=== PATIENT | female | born 2000 | race Caucasian/White ===

== ENCOUNTER 2021-07-03 16:53 | Emergency (ER) | payer MEDICAID, SELFPAY ==
[2021-07-03 17:24] VITALS: PULSE 83; RESP 16; TEMP 37; O2SAT 97; BMI 29.7
[2021-07-03 20:32] LABS: Basophils # 0.1 10^3/uL (0.0-0.1); Basophils % 0.5 %; Eosinophils # 0.1 10^3/uL (0.0-0.8); Hematocrit 45.5 % (37.0-47.0); Hemoglobin 14.2 g/dL (11.5-15.3); Lymphocytes # 2.4 10^3/uL (1.5-6.5); Mean Corpuscular HGB Conc 31.2 g/dL (30.0-36.0); Mean Corpuscular Hemoglobin 25.8 pg (28.0-34.0); Mean Corpuscular Volume 82.6 fl (81-99); Mean Platelet Volume 9.9 fL (7.4-10.4); Monocytes # 0.7 10^3/uL (0.2-0.9); Monocytes % 5.6 %; Neutrophils # 8.76 10^3/uL (1.8-8.0); Neutrophils % 72.7 %; Nucleated Red Blood Cells % 0 %; Platelet Count 395 10^3/cmm (130-400); Red Blood Count 5.51 10^6/uL (4.1-5.3); Red Cell Distribution Width 12.5 % (12.1-15.1); White Blood Count 12.1 10^3/uL (4.5-13.0)
[2021-07-03 20:59] LABS: HCG Quantitative 61.56 mIU/mL
--- NOTE | 2021-07-03 21:18 | USR_ITS ---
PROCEDURE INFORMATION: Exam: US First Trimester, Transabdominal and US , Transvaginal Exam date and time: 07/03/2021 9:18 PM Age: 20 years old Clinical indication: complicated by abdominal or pelvic pain; Right lower quadrant; First trimester; Gestational age or lmp: 2 weeks; ; Additional info: Abd pain TECHNIQUE: Imaging protocol: Real-time transabdominal obstetrical ultrasound of the maternal pelvis and a first trimester , less than 14 weeks 0 days, with image documentation. Transvaginal imaging was used for better evaluation of the fetus, adnexa, and/or cervix. Total images: 65 COMPARISON: No relevant prior studies available. FINDINGS: Gestation: No visible intrauterine gestational sac, pole, or yolk sac. MATERNAL: Uterus: Neutral position nongravid appearing uterus dimensions 4.8 cm x 3.4 cm x 3.9 cm. Endometrial stripe appears normal measuring 3 mm. Normal transition zone. No visible endometrial fluid. Cervix: Unremarkable. Right adnexa: Right ovary appears sonographically normal. Right ovary contains numerous simple appearing follicle cysts. Dominant follicle measures 12 mm. Dimensions of the right ovary 3.0 cm x 2.5 cm x 2.7 cm. Positive arterial flow to color and Doppler assessment. No visible right adnexal mass or cystic lesion. Left adnexa: Left ovary appears sonographically normal. Numerous simple appearing follicle cysts. Dimensions of the left ovary 3.1 cm x 2.5 cm x 2.7 cm. Positive arterial flow to color Doppler assessment. No visible left adnexal mass or cystic lesion. Intraperitoneal space: Tiny amount of free fluid the cul-de-sac. US/US OB <=14 wk fetus w transvag IMPRESSION: No visible intrauterine gestation.
--- NOTE | 2021-07-03 21:21 | ED_ITS ---
HPI - Female Genitourinary General: Chief complaint: Vaginal Bleeding Stated complaint: Vaginal bleeding, Cramping on L side Time Seen by Provider: 07/03/21 21:04 Source: patient Mode of arrival: ambulatory Limitations: no limitations History of Present Illness: HPI Narrative: 20-year-old female states she been having left lower quadrant pain and cramping and vaginal bleeding. Patient is seen at urgent care and sent here to rule out ectopic . States pain is sharp in nature and rates it a 2 out of 10. States her bleeding is not very heavy but a little heavier than a period. She denies passing any blood clots. She denies any worsening improving factors. Associated symptoms: Reports abdominal pain; Deny headache(s) or nausea Date of Last Menstrual Period: 06/26/21 Review of Systems Const: Denies: fever(s), chills, body aches or change in appetite Eyes: Denies: blurry vision or eye discomfort ENMT: Denies: throat pain or dental pain Card: Denies: chest pain Resp: Denies: dyspnea GI: Reports: abdominal pain; Denies: nausea, vomiting or diarrhea : Reports: vaginal bleeding; Denies: dysuria Musc: Denies: neck pain or back pain Skin/Breast: Denies: rash Neuro: Denies: headache(s) Psych: Denies: depression [place]/Lymph: Denies: easy bruising All/Imm: Denies: urticaria PFSH ED PFSH: Social History (Updated 07/04/20 @ 10:13 by Mary Corado LPN) Smoking and tobacco status: never smoked Alcohol intake: never Female Reproductive History: Date of last menstrual period: 06/26/21 Physical Exam Const: COMMON NORMALS: no acute distress, patient oriented x3 and healthy appearing HENMT: COMMON NORMALS: normocephalic and atraumatic HEAD & SCALP: normocephalic and atraumatic Eye: COMMON NORMALS: Equal, round and reactive pupils present and EOMs intact bilaterally PUPIL: Yes Equal, round and reactive pupils present Neck/C-Spine: COMMON NORMALS: full ROM and supple Chest: COMMONS NORMALS: normal inspection of the chest and normal palpation of entire chest wall Resp: COMMON NORMALS: normal respiratory effort, No retractions, No use of accessory muscles and clear to auscultation bilaterally AUSCULTATION: clear to auscultation bilaterally Cardio: COMMON NORMALS: regular rate, regular rhythm and No murmurs present (Cardio) RATE: regular rate RHYTHM: regular rhythm GI: COMMON NORMALS: Normal to inspection, nondistended, normoactive bowel sounds present, Soft to palpation, non-tender and no masses PALPATION: Yes Soft to palpation Extremity: COMMON NORMALS: normal to inspection and full ROM Neuro: COMMON NORMALS: patient oriented x3, moves all extremities and no focal motor deficits Psych: COMMON NORMALS: mental status grossly normal, Normal thought process present and cooperative THOUGHT PROCESS: Normal thought process present Skin: COMMON NORMALS: no rashes or lesions noted and no wounds GENERAL SKIN EXAM: no rashes or lesions noted Course Vital Signs: Vital signs: Vital Signs Temperature 98.6 F 07/03/21 17:24 Pulse Rate 83 07/03/21 17:24 Respiratory Rate 16 07/03/21 17:24 Pulse Oximetry 97 07/03/21 17:24 MDM - Female MDM Narrative: Medical decision making narrative: Patient presents here with vaginal bleeding with likely miscarriage that was missed. Her quantitative here is only 68 ultrasound showed no signs of ectopic. She is well-appearing here and stable for discharge. She has no heavy bleeding. She is to follow-up and I informed her she needs to have a repeat quantitative in 2 days to make sure that it is trending down. She understands and agrees the plan. Lab Data: Labs: Lab Results 07/03/21 07/03/21 07/03/21 Range/Units 20:23 20:23 20:23 WBC 12.1 (4.5-13.0) 10^3/ uL RBC 5.51 H (4.1-5.3) 10^6/u L Hgb 14.2 (11.5-15.3) g/dL Hct 45.5 (37.0-47.0) % MCV 82.6 (81-99) fl MCH 25.8 L (28.0-34.0) pg MCHC 31.2 (30.0-36.0) g/dL RDW 12.5 (12.1-15.1) % Plt Count 395 (130-400) 10^3/c mm MPV 9.9 (7.4-10.4) fL Neut % (Auto) 72.7 % Lymph % (Auto) 20.0 % Wallace % (Auto) 5.6 % Eos % (Auto) 1.0 % Baso % (Auto) 0.5 % Neut # (Auto) 8.76 H (1.8-8.0) 10^3/u L Lymph # (Auto) 2.4 (1.5-6.5) 10^3/u L Wallace # (Auto) 0.7 (0.2-0.9) 10^3/u L Eos # (Auto) 0.1 (0.0-0.8) 10^3/u L Baso # (Auto) 0.1 (0.0-0.1) 10^3/u L Nucleated RBC % (a uto) 0 % Nucleated RBCs # 0.0 /100WBC Ser , Micha i-Qnt 61.56 mIU/mL Blood Type O Positive Rho(D) Type Positive Discharge Plan Discharge Patient Disposition: Home Clinical Impression: Missed Condition: Stable Discharge Orders: Discharge ED (Routine); Ordered 07/03/21 Ordered By: Yessi Borja Referrals: Trinh Vargas FNP [Primary Care Provider] - 1-3 days Discharge Diet: Advance as tolerated Discharge Activity: Resume usual activity Patient Instructions: Spontaneous Miscarriage (ED) Coding Level of Care Code ED Construction Manager for Bertha Fwd Exam Comprehensive
[2021-07-03] MEDS: HYDROcodone-acetaminophen 7.5-325 mg Tablet 1 TAB PO (21:39)
[2021-07-03 22:37] VITALS: BP 156/68; PULSE 89; RESP 18; O2SAT 96
== END 2021-07-03 22:38 | disposition home or self-care (01) ==
PROVIDERS: Nurse Practitioner Family; Emergency Provider Emergency Medicine; PCP Registered Nurse
DX: O02.1 Missed abortion (principal)
CPT/HCPCS: 76801; 76817; 81025; 84702; 85025; 86900; 99283

== ENCOUNTER → 2021-07-06 12:09 | Outpatient (BNVA) | payer MEDICAID, SELFPAY | PROVIDERS: PCP Registered Nurse; Visit Provider Registered Nurse Neonatal Intensive Care | DX: O02.1 Missed abortion (principal) | CPT/HCPCS: 84702 ==

== ENCOUNTER → 2021-10-15 13:31 | Outpatient (BNVA) | payer MEDICAID, SELFPAY | PROVIDERS: PCP Registered Nurse; Referring Provider Registered Nurse; Visit Provider Nurse Practitioner Women's Health | DX: N92.6 Irregular menstruation, unspecified (principal) | CPT/HCPCS: 81025; 84702 ==

== ENCOUNTER 2021-10-21 20:28 | Emergency (ER) | payer MEDICAID, SELFPAY ==
[2021-10-21 20:39] VITALS: BP 139/88; PULSE 86; RESP 18; TEMP 36.7; O2SAT 100; BMI 42.3
--- NOTE | 2021-10-21 21:13 | W.ED.FEVER ---
HPI - Fever General: Chief Complaint: Fever Stated Complaint: Fever and 9 wks Time Seen by Provider: 10/21/21 21:13 History of Present Illness: HPI Narrative: 21-year-old female comes in today for complaints of an elevated temperature at home of 104 that was read by infrared screening tool. Patient also been having some left flank and inguinal discomfort. Patient was worried she may have an infection or a ectopic . Patient is about 9 weeks . Patient has some significant eczema which makes her face feel red and suspect that it might have offset her thermometer at home. Review of Systems General: Reports: 10 or more systems reviewed and unremarkable except in HPI and below : Reports: other (Left inguinal pelvic pain) PFS ED PFSH: Medical History (Updated 10/22/21 @ 01:39 by TIANNA Amanda) Eczema (~04/2021) managed by syed; Dr. Hauser at [facility] [place]. No pertinent past medical history neghx: htn,dm,thyroid,dvt/pe PCP: Trinh Vargas Surgical History (Updated 10/15/21 @ 14:00 by Fariba Sapp APN, YOGI) History of hernia surgery Umbilical --- at 6 months old History of surgery on arm (~2016) L arm- cubital tunnel repair due to cheer leading incident History of tonsillectomy and adenoidectomy as a child Family History Father Heart disease Hypertension Thyroid disease Mother Hypertension Cervical cancer dx age 40's Thyroid disease thyroid cancer Denies family history of Colon cancer Ovarian cancer Diabetes Hypercholesteremia Breast cancer Uterine cancer Stroke Social History Smoking and tobacco status: never smoked Alcohol intake: never Female Reproductive History: Date of last menstrual period: 08/21/21 Physical Exam Const: COMMON NORMALS: no acute distress and patient oriented x3 GENERAL APPEARANCE: cooperative HENMT: COMMON NORMALS: normocephalic, TM's normal bilaterally and Normal external nose present HEAD & SCALP: normal to inspection and normocephalic NOSE: Normal external nose present TYMPANIC MEMBRANE: TM's normal bilaterally MOUTH: Normal oral and palatal mucosa present THROAT: posterior oropharynx normal Eye: GENERAL EYE: appearance normal, both eyes and all related structures Neck/C-Spine: COMMON NORMALS: full ROM Lymph: LYMPHATIC: no lymphadenopathy noted Chest: COMMONS NORMALS: normal inspection of the chest Resp: COMMON NORMALS: normal respiratory effort EFFORT & INSPECTION: Yes able to speak in complete sentences Cardio: COMMON NORMALS: regular rate and regular rhythm RATE: regular rate RHYTHM: regular rhythm GI: COMMON NORMALS: non-tender : COMMON NORMALS: Yes no CVA tenderness BLADDER/KIDNEY EXAM: Yes no CVA tenderness Back/Pelvis: COMMON NORMALS: no CVA tenderness and thoracic and lumbar spine normal to inspection Extremity: COMMON NORMALS: normal to inspection Neuro: COMMON NORMALS: patient oriented x3 and moves all extremities Psych: COMMON NORMALS: mental status grossly normal and cooperative Skin: COMMON NORMALS: no rashes or lesions noted GENERAL SKIN EXAM: no rashes or lesions noted Course Vital Signs: Vital signs: Vital Signs Temperature 98.1 F 10/21/21 20:39 Pulse Rate 88 10/22/21 00:28 Respiratory Rate 19 H 10/22/21 00:28 Blood Pressure 141/89 10/22/21 00:28 Pulse Oximetry 98 10/22/21 00:28 MDM - Fever MDM Narrative: Medical decision making narrative: 21-year-old female comes in today with concerns of fever and left inguinal pain. On exam abdomen was soft and nontender. No CVA tenderness. Vital signs were normal. Skin was warm and dry. Respirations were even. Differential diagnosis includes but not limited to ectopic , urinary tract infection, viral syndrome, fever of unknown origin. Laboratory values were normal. Urinalysis was normal. hCG was 75,000. Ultrasound of the pelvis noted a viable fetus with 153 heart rate in the uterus. No signs of ectopic was noted. Patient ran no fever in the emergency room. Suspect may be a malfunction with patient's home thermometer recommend recheck with a noninfrared thermometer. Encourage fluids and rest. Use acetaminophen as needed for fever. Follow-up with primary care for further instruction. Return to the ER for worsening symptoms or new concerns. Lab Data: Labs: Lab Results 10/21/21 10/21/21 10/21/21 20:53 21:33 21:33 WBC 11.9 10^3/uL 10^3 /uL (4.5-13.0) RBC 5.20 10^6/uL 10^6 /uL (4.1-5.3) Hgb 13.4 g/dL g/dL (11.5-15.3) Hct 41.5 % % (37.0-47.0) MCV 79.8 fl L fl (81-99) MCH 25.8 pg L pg (28.0-34.0) MCHC 32.3 g/dL g/dL (30.0-36.0) RDW 14.0 % % (12.1-15.1) Plt Count 354 10^3/cmm 10^3 /cmm (130-400) MPV 10.3 fL fL (7.4-10.4) Neut % (Auto) 62.9 % % Lymph % (Auto) 23.5 % % [place] % (Auto) 7.2 % % Eos % (Auto) 5.8 % % Baso % (Auto) 0.3 % % Neut # (Auto) 7.46 10^3/uL 10^3 /uL (1.8-8.0) Lymph # (Auto) 2.8 10^3/uL 10^3/ uL (1.5-6.5) [place] # (Auto) 0.9 10^3/uL 10^3/ uL (0.2-0.9) Eos # (Auto) 0.7 10^3/uL 10^3/ uL (0.0-0.8) Baso # (Auto) 0.0 10^3/uL 10^3/ uL (0.0-0.1) Nucleated RBC % (a uto) 0 % % Nucleated RBCs # 0.0 /100WBC /100W BC Sodium 136 mmol/L mmol/L (136-145) Potassium 3.7 mmol/L mmol/L (3.5-5.1) Chloride 100 mmol/L mmol/L (98-107) Carbon Dioxide 22 mmol/L mmol/L (22-29) Anion Gap 17.7 (5-19) BUN 5 mg/dL L mg/dL (6-20) Creatinine 0.6 mg/dL mg/dL (0.5-0.9) GFR Calculation 127.5 mL/min mL/m in (90-130) Glucose 92 mg/dL mg/dL (65-115) Calculated Osmolal ity 279 mOsm/kg L mOs m/kg (285-295) Calcium 9.1 mg/dL mg/dL (8.5-10.5) Total Bilirubin 0.2 mg/dL mg/dL (0.15-1.2) AST 22 U/L U/L (0-32) ALT 17 U/L U/L (0-33) Alkaline Phosphata se 110 IU/L H IU/L (35-105) Total Protein 7.2 g/dL g/dL (6.6-8.7) Albumin 4.4 g/dL g/dL (3.5-5.2) Globulin 2.8 g/dL g/dL (1.3-4.6) Ser , Micha i-Qnt 84466.00 mIU/mL m IU/mL Urine Color Yellow (Yellow) Urine Appearance Clear (CLEAR) Urine pH 5 (5-7) Ur Specific Gravit y 1.030 (1.005-1.030) Urine Protein Neg (Negative) Urine Glucose (UA) Norm (Normal) Urine Ketones Negative (Negative) Urine Blood Neg (Negative) Urine Nitrate Negative (Negative) Urine Bilirubin Neg (Negative) Urine Urobilinogen Neg mg/dL mg/dL (Negative) Ur Leukocyte Aide ase Negative (Negative) Discharge Plan Discharge Patient Disposition: Home Clinical Impression: Pain of round ligament during , Viral syndrome Condition: Stable Prescriptions: No Action Gummies 400 mcg-35 mg- 25 mg-5 mg tablet,chewable PO RF: 0 Dupixent Syringe 200 mg/1.14 mL syringe SUBCUT RF: 0 Discharge Orders: Discharge ED (Routine); Ordered 10/22/21 Ordered By: Dayton Sepulveda Referrals: Trinh Vargas FNP [Primary Care Provider] - Discharge Diet: Usual diet Discharge Activity: Increase activity as tolerated Patient Instructions: Abdominal Pain (ED) Activity Restrictions/Additional Instructions: Drink plenty of fluids. Activity as tolerated. Follow-up with primary care for further instruction. Return to the ER for new concerns or worsening symptoms such as high fever, vaginal bleeding, or inability to control fever or hold down fluids. Coding Level of Care Code ED Technician [employer] for Bertha Sena
--- NOTE | 2021-10-21 21:20 | USR_ITS ---
PROCEDURE INFORMATION: Exam: US First Trimester, Transabdominal and US , Transvaginal Exam date and time: 10/21/2021 9:20 PM Age: 21 years old Clinical indication: complicated by abdominal or pelvic pain; Left lower quadrant; First trimester (<14 weeks 0 days); Gestational age or lmp: 8w5d; ; Patient HX: G2- p0; Additional info: Left flank radiating pain, 9weeks TECHNIQUE: Imaging protocol: Real-time transabdominal obstetrical ultrasound of the maternal pelvis and a first trimester , less than 14 weeks 0 days, with image documentation. Transvaginal imaging was used for better evaluation of the fetus, adnexa, and/or cervix. COMPARISON: US OB <=14 wk fetus w transvag 07/03/2021 9:57 PM FINDINGS: Gestation: Intrauterine yolk sac. presentation: Variable presentation. Embryonic/ heart rate: heart beat 153 bpm but no images were sent to document this. BIOMETRY: [place]-Rump length: No images measuring the crown-rump length were sent for interpretation. MATERNAL: Uterus: 11.1 x 5.7 x 7.8 cm uterus with estimated volume 257 cc. Cervix: Unremarkable. Right ovary/adnexa: 1.6 x 2.6 x 3.8 cm right ovary with estimated volume 8.5 cc. No Doppler images of the right ovary. Left ovary/adnexa: 1.7 x 2.0 x 2.5 cm left ovary with estimated volume 4.3 cc. Normal left ovarian perfusion. Intraperitoneal space: No intraperitoneal free fluid. US/US OB <=14 wk fetus w transvag IMPRESSION: 1. heart beat 153 bpm but no images were sent to document this. 2. No images measuring the crown-rump length were sent for interpretation. 3. Variable presentation. 4. Intrauterine yolk sac. 5. Normal left ovarian perfusion. 6. No Doppler images of the right ovary.
[2021-10-21 21:31] LABS: Add Urine Microscopic? NO; Charge for UA Resulting for Rev
[2021-10-21 21:36] LABS: Bilirubin Urine Neg (Negative); Blood Urine Neg (Negative); Glucose Urine UA Norm (Normal); Ketones Urine Negative (Negative); Leukocyte Esterase Urine Negative (Negative); Nitrate Urine Negative (Negative); Protein Urine Neg (Negative); Urine Appearance Clear (CLEAR); Urine Color Yellow (Yellow); Urobilinogen Urine Neg (Negative); pH Urine 5 (5-7)
[2021-10-21 21:40] LABS: Basophils % 0.3 %; Eosinophils # 0.7 10^3/uL (0.0-0.8); Eosinophils % 5.8 %; Hematocrit 41.5 % (37.0-47.0); Hemoglobin 13.4 g/dL (11.5-15.3); Lymphocytes # 2.8 10^3/uL (1.5-6.5); Lymphocytes % 23.5 %; Mean Corpuscular HGB Conc 32.3 g/dL (30.0-36.0); Mean Corpuscular Hemoglobin 25.8 pg (28.0-34.0); Mean Corpuscular Volume 79.8 fl (81-99); Mean Platelet Volume 10.3 fL (7.4-10.4); Monocytes # 0.9 10^3/uL (0.2-0.9); Monocytes % 7.2 %; Neutrophils # 7.46 10^3/uL (1.8-8.0); Neutrophils % 62.9 %; Nucleated Red Blood Cells % 0 %; Platelet Count 354 10^3/cmm (130-400); White Blood Count 11.9 10^3/uL (4.5-13.0)
[2021-10-21 22:11] LABS: Alanine Aminotransferase 17 U/L (0-33); Albumin Level 4.4 g/dL (3.5-5.2); Alkaline Phosphatase 110 IU/L (35-105); Anion Gap 17.7 (5-19); Aspartate Amino Transferase 22 U/L (0-32); Blood Urea Nitrogen 5 mg/dL (6-20); Calcium 9.1 mg/dL (8.5-10.5); Carbon Dioxide 22 mmol/L (22-29); Chloride 100 mmol/L (98-107); Globulin 2.8 g/dL (1.3-4.6); Glomerular Filtration Rate 127.5 mL/min (90-130); Glucose 92 mg/dL (65-115); Osmolality Calculated 279 mOsm/kg (285-295); Potassium 3.7 mmol/L (3.5-5.1); Sodium 136 mmol/L (136-145); Total Bilirubin 0.2 mg/dL (0.15-1.2); Total Protein 7.2 g/dL (6.6-8.7)
[2021-10-21 22:44] VITALS: BP 137/68; PULSE 83; RESP 18; O2SAT 99
[2021-10-22 00:28] VITALS: BP 141/89; PULSE 88; RESP 19; O2SAT 98
[2021-10-22 01:46] VITALS: BP 134/66; PULSE 90; RESP 16; O2SAT 97
== END 2021-10-22 01:47 | disposition home or self-care (01) ==
PROVIDERS: Emergency Provider Nurse Practitioner Family; PCP Registered Nurse
DX: O98.511 Other viral diseases complicating pregnancy, first trimester (principal); B34.9 Viral infection, unspecified; O26.891 Other specified pregnancy related conditions, first trimester; R10.2 Pelvic and perineal pain; Z3A.09 9 weeks gestation of pregnancy
CPT/HCPCS: 76801; 76817; 80053; 81003; 84702; 85025; 99283

== ENCOUNTER → 2021-11-06 09:25 | Outpatient (BNVA) | payer MEDICAID, SELFPAY | PROVIDERS: PCP Registered Nurse; Visit Provider Obstetrics & Gynecology | DX: Z34.90 Encounter for supervision of normal pregnancy, unspecified, unspecified trimester (principal); L30.9 Dermatitis, unspecified | CPT/HCPCS: 80307; 81000; 87086 ==

== ENCOUNTER → 2021-11-18 13:16 | Outpatient (BNVA) | payer MEDICAID, SELFPAY | PROVIDERS: PCP Registered Nurse; Visit Provider Nurse Practitioner Family | DX: Z20.822 Contact with and (suspected) exposure to COVID-19 (principal) | CPT/HCPCS: 87635 ==

== ENCOUNTER → 2021-11-20 13:48 | Outpatient (BNVA) | payer MEDICAID, SELFPAY | PROVIDERS: PCP Registered Nurse; Visit Provider Obstetrics & Gynecology | DX: Z34.80 Encounter for supervision of other normal pregnancy, unspecified trimester | CPT/HCPCS: 80053; 81000; 82950; 84443; 85027; 86592; 86762; 86803; 86850; 86900; 87340; 87491; 87591; 87806 ==

== ENCOUNTER 2021-12-16 04:44 | Emergency (ER) | payer MEDICAID, SELFPAY ==
[2021-12-16 04:51] VITALS: BP 168/66; PULSE 107; RESP 16; TEMP 36.2; O2SAT 97; BMI 40.7
[2021-12-16 05:09] VITALS: BP 159/55; PULSE 104; RESP 18; O2SAT 98
--- NOTE | 2021-12-16 05:14 | W.ED.ALLEREA ---
HPI - Allergic Reaction General: Chief complaint: Allergic Reaction Stated complaint: 17 weeks Preg\Allergic Reaction Time Seen by Provider: 12/16/21 04:59 Source: patient History of Present Illness: HPI narrative: 21-year-old female who is 17 weeks . She has been dealing with contact dermatitis/eczema for the last couple of months. She has seen her OB, dermatology, and allergy. She has been taking Dupixent as well as 3 Zyrtec a day. She awoke this morning with worsening symptoms including itching to the face and arms. She denies trouble breathing or wheezing. She states she has only been sleeping a couple hours at a time at night. She was on steroids quite a bit beginning of her for this, and notes that she actually worsened at one point with steroids. She was told by her basket machine operator if at all possible not to use any more steroid. Associated symptoms: Deny abdominal pain, difficulty breathing, dysphagia, facial swelling, lip swelling, nausea, tongue swelling or vomiting Severity: moderate Treatment prior to arrival: other Previous Allergic Reaction History: eczema Review of Systems Const: Denies: fever(s) or chills Eyes: Denies: change in vision ENMT: Denies: throat pain or uvular edema Card: Denies: chest pain or palpitations Resp: Denies: dyspnea, productive cough or non-productive cough GI: Denies: abdominal pain, nausea, vomiting or dysphagia Skin/Breast: Reports: rash All/Imm: Denies: tongue swelling or facial swelling [facility] ED PFSH: Medical History Eczema (~04/2021) Diagnosed in 2019 but has really gotten worse in 2020 managed by rahat; Dr. Hauser at [facility] [place]. She also takes tapered doses of steroids when she has flares up. No pertinent past medical history Denies diabetes, asthma, hypertension, seizures, DVT/PE PCP: TIANNA Lim Surgical History History of hernia surgery Umbilical --- at 6 months old---does not know if mesh was used History of surgery on arm (~2016) Left arm-fracture after trauma History of tonsillectomy and adenoidectomy as a child---at the age of 7 Family History Father Heart disease Hypertension Thyroid disease Mother Hypertension Cervical cancer dx age 40's Thyroid disease thyroid cancer Denies family history of Colon cancer Ovarian cancer Diabetes Hypercholesteremia Breast cancer Uterine cancer Stroke Female Reproductive History: Date of last menstrual period: 08/21/21 Physical Exam Const: COMMON NORMALS: no acute distress and alert GENERAL APPEARANCE: cooperative; not ill appearing NUTRITIONAL APPEARANCE: obese ORIENTATION/CONSCIOUSNESS: Yes awake, Yes oriented to person, Yes oriented to place and Yes oriented to time HENMT: COMMON NORMALS: normocephalic, atraumatic and Normal external nose present HEAD & SCALP: normocephalic and atraumatic NOSE: Normal external nose present and Normal nares present MOUTH: Normal oral and palatal mucosa present THROAT: no uvular edema Eye: COMMON NORMALS: Equal, round and reactive pupils present and EOMs intact bilaterally PUPIL: Yes Equal, round and reactive pupils present Resp: COMMON NORMALS: normal respiratory effort, No use of accessory muscles and clear to auscultation bilaterally AUSCULTATION: clear to auscultation bilaterally Cardio: COMMON NORMALS: regular rate and regular rhythm RATE: regular rate RHYTHM: regular rhythm GI: COMMON NORMALS: Normal to inspection, nondistended, normoactive bowel sounds present Neuro: SENSORIUM/ORIENTATION: Yes alert, Yes oriented to person, Yes oriented to place and Yes oriented to time Psych: COMMON NORMALS: mental status grossly normal Skin: NARRATIVE SKIN EXAM: Examination reveals widespread erythematous rolled bordered rash on extremities trunk and face. Rash is convalesced in the face Course Vital Signs: Vital signs: Vital Signs Temperature 97.2 F L 12/16/21 04:51 Pulse Rate 81 12/16/21 06:33 Respiratory Rate 16 12/16/21 06:33 Blood Pressure 139/83 12/16/21 06:33 Pulse Oximetry 96 12/16/21 06:33 MDM - Allergic Reaction Medical Decision Making Improvement in redness, and itching after Benadryl and Pepcid here. Patient again declined steroid. Will allow her home. She may take her Zyrtec as she normally would. No evidence of airway compromise or angioedema. Discharge Plan Discharge Patient Disposition: Home Clinical Impression: Allergic reaction Condition: Stable Prescriptions: No Action Gummies 400 mcg-35 mg- 25 mg-5 mg tablet,chewable PO 0RF Dupixent Syringe 200 mg/1.14 mL syringe SUBCUT .every other week 0RF Zyrtec 10 mg capsule 30 mg PO DAILY [id number] metoclopramide HCl [Reglan] 5 mg tablet 5 mg PO Q6H 14 Days Qty: 56 0RF Discharge Orders: Discharge ED (Routine); Ordered 12/16/21 Ordered By: Vamshi Perez Referrals: Trinh Vargas FNP [Primary Care Provider] - Patient Instructions: Allergic Reaction Activity Restrictions/Additional Instructions: Return for worsening redness, itching, trouble breathing, wheezing, and any other concerning symptoms. Coding Level of Care Code ED Rn Surgery Icu for Bertha Fwd Exam Detailed
[2021-12-16] MEDS: diphenhydrAMINE 50 mg/mL SDV 1mL IVP (05:25)
[2021-12-16] MEDS: LORazepam 2 mg/mL INJ 1 mL 1 MG IVP (05:28)
[2021-12-16] MEDS: famotidine 20 mg/2 mL INJ 40 MG IVP (05:28)
[2021-12-16] MEDS: diphenhydrAMINE 50 mg/mL SDV 1mL 25 MG IVP (06:32)
[2021-12-16 06:33] VITALS: BP 139/83; PULSE 81; RESP 16; O2SAT 96
[2021-12-16 06:57] VITALS: BP 135/77; PULSE 90; RESP 18; O2SAT 99
== END 2021-12-16 06:59 | disposition home or self-care (01) ==
PROVIDERS: Emergency Provider Emergency Medicine; PCP Registered Nurse
DX: O26.892 Other specified pregnancy related conditions, second trimester (principal); T78.40XA Allergy, unspecified, initial encounter; Z3A.17 17 weeks gestation of pregnancy
CPT/HCPCS: 96374; 96375; 99284; J1200; J2060; J3490

== ENCOUNTER → 2021-12-20 11:47 | Outpatient (BNVA) | payer MEDICAID, SELFPAY | PROVIDERS: PCP Registered Nurse; Visit Provider Nurse Practitioner Women's Health | DX: Z34.90 Encounter for supervision of normal pregnancy, unspecified, unspecified trimester (principal) | CPT/HCPCS: 81000 ==

== ENCOUNTER → 2021-12-24 13:22 | Outpatient (BNVA) | payer MEDICAID, SELFPAY | PROVIDERS: PCP Registered Nurse; Visit Provider Obstetrics & Gynecology | DX: Z34.90 Encounter for supervision of normal pregnancy, unspecified, unspecified trimester; R74.8 Abnormal levels of other serum enzymes | CPT/HCPCS: 82105; 84075; 84450; 84460 ==

== ENCOUNTER 2021-12-26 13:09 | Emergency (ER) | payer MEDICAID, SELFPAY ==
[2021-12-26 13:16] VITALS: BP 147/84; PULSE 90; RESP 18; TEMP 36.6; O2SAT 98; BMI 40.7
--- NOTE | 2021-12-26 13:44 | ED_ITS ---
HPI - Skin/Abscess/Foreign Bdy General: Chief complaint: Skin/Abscess/Foreign Body Stated complaint: rash all over body an hurting Time Seen by Provider: 12/26/21 13:23 History of Present Illness: Patient presents with a rash and swelling to the face where she was putting antibiotic ointment. She recently diagnosed with a skin staph aureus infection. Patient does have eczema and is on autoimmune medication for that. Patient declines any oral steroids due to being on those 4 weeks of her 18-week . Patient states she deals with itching daily. She is scheduled to see [facility] in [place] next week. Associated symptoms: Deny chills, fever(s), nausea or vomiting Review of Systems Const: Denies: fever(s), chills or body aches Eyes: Denies: eye discomfort ENMT: Denies: throat pain Card: Denies: chest pain Resp: Denies: dyspnea GI: Denies: abdominal pain, nausea or vomiting Skin/Breast: Reports: pruritus, erythema and skin swelling (Where she placed antibiotic ointment); Denies: rash Neuro: Denies: headache(s) Psych: Denies: depression or suicidal ideation PFSH ED PFSH: Medical History Eczema (~04/2021) Diagnosed in 2019 but has really gotten worse in 2020 managed by rahat; Dr. Hauser at [facility] [place]. She also takes tapered doses of steroids when she has flares up. No pertinent past medical history Denies diabetes, asthma, hypertension, seizures, DVT/PE PCP: TIANNA Lim Surgical History History of hernia surgery Umbilical --- at 6 months old---does not know if mesh was used History of surgery on arm (~2016) Left arm-fracture after trauma History of tonsillectomy and adenoidectomy as a child---at the age of 7 Family History Father Heart disease Hypertension Thyroid disease Mother Hypertension Cervical cancer dx age 40's Thyroid disease thyroid cancer Denies family history of Colon cancer Ovarian cancer Diabetes Hypercholesteremia Breast cancer Uterine cancer Stroke Female Reproductive History: Date of last menstrual period: 08/21/21 Physical Exam Narrative: EXAM NARRATIVE: Patient is not having respiratory distress. Const: COMMON NORMALS: no acute distress, patient oriented x3 and alert HENMT: COMMON NORMALS: normocephalic HEAD & SCALP: normocephalic Eye: COMMON NORMALS: EOMs intact bilaterally Neck/C-Spine: COMMON NORMALS: no JVD Resp: COMMON NORMALS: normal respiratory effort and No use of accessory muscles Cardio: COMMON NORMALS: no JVD GI: INSPECTION: Yes normal to inspection Extremity: COMMON NORMALS: normal to inspection and full ROM Neuro: COMMON NORMALS: patient oriented x3 SENSORIUM/ORIENTATION: Yes alert Psych: COMMON NORMALS: mental status grossly normal Skin: OTHER: Patient has area of redness on her face around her eyes around her nose around her mouth chin and not near her temples and this is where she said she placed antibiotic ointment to combat the staph aureus infection she has. She said is felt feverish. Areas robin with touch is red confluent with a migrating border. Patient also has small plaques all over her body consistent with her current diagnosis of psoriasis. Course Vital Signs: Vital signs: Vital Signs Temperature 97.9 F 12/26/21 13:16 Pulse Rate 90 12/26/21 13:16 Respiratory Rate 18 12/26/21 13:16 Blood Pressure 147/84 12/26/21 13:16 Pulse Oximetry 98 12/26/21 13:16 MDM - Skin/Abscess/Foreign Bdy Medicial Decision Making Went over patient's history and records that were present in the computer. Discussed with patient treatments that she is received already. The rash that she has now started worsening when she started put on the mupirocin ointment. Patient states areas worse but the ointment got red and swell that are burning. Patient currently under treatment for eczema. Patient had done 4 weeks of steroids in her 18-week so far and those steroids were stopped due to possibility of defects. Patient presents with redness swelling on the face for the ointments been applied. Patient currently being treated for staph skin infection from a culture that was done by the OB doctor on drainage it was coming from her face near her chin. Patient has follow-up appointment with [facility] in [place]. Patient will be placed on Cipro, based on sensitivity report that she received from the culture. Patient counseled this is a class C medication has been used effectively in . Patient was instructed to stop her ointment and use the hydrocortisone lotion 1% twice a day to the areas of discomfort on her face and was strongly encouraged follow-up with her OB this week and discuss her current treatment. Discharge Plan Discharge Patient Disposition: Home Clinical Impression: Allergic reaction caused by a drug Condition: Stable Prescriptions: New hydrocortisone 1 % lotion 1 applic topical BID PRN (Reason: allergic reaction) Qty: 120 0RF Cipro 500 mg tablet 500 mg PO BID Qty: 14 0RF No Action Gummies 400 mcg-35 mg- 25 mg-5 mg tablet,chewable PO 0RF diphenhydramine HCl [Benadryl Allergy] 25 mg tablet 25 mg PO TID PRN0RF famotidine [Pepcid] 20 mg tablet 20 mg PO DAILY 0RF Zyrtec 10 mg capsule 30 mg PO DAILY PRN0RF Discharge Orders: Discharge ED (Routine); Ordered 12/26/21 Ordered By: Neo Parsons Referrals: Trinh Vargas FNP [Primary Care Provider] - Discharge Diet: As Directed Discharge Activity: Increase activity as tolerated Activity Restrictions/Additional Instructions: Follow-up with medical provider as directed. Take medications as prescribed. Return to the ER or your medical provider if condition worsens. Please read and understand discharge instructions. If any questions ask please. Stop using the antibiotic cream you are given. Follow-up with your OB doctor make sure medications are good to continue during . Coding Level of Care Code ED Hand Zipper Trimmer for Bertha Sena
== END 2021-12-26 13:53 | disposition home or self-care (01) ==
PROVIDERS: Emergency Provider Nurse Practitioner Family; PCP Registered Nurse
DX: O26.892 Other specified pregnancy related conditions, second trimester (principal); T78.40XA Allergy, unspecified, initial encounter; T50.905A Adverse effect of unspecified drugs, medicaments and biological substances, initial encounter; Z3A.18 18 weeks gestation of pregnancy
CPT/HCPCS: 99282; 99291; 99292

== ENCOUNTER 2022-02-14 22:51 | Outpatient (CLI) | payer MEDICAID, SELFPAY ==
[2022-02-14 22:56] VITALS: BP 141/70; PULSE 82
[2022-02-14 22:59] VITALS: RESP 16; TEMP 36.7
[2022-02-14 23:00] VITALS: BMI 43.7
--- NOTE | 2022-02-14 23:12 | USR_ITS ---
PROCEDURE INFORMATION: Exam: US , Limited Exam date and time: 02/14/2022 11:37 PM Age: 21 years old Clinical indication: Injury or trauma; Blunt trauma; Other: Fall in bathtub, no bruising visualized; Injury date: 02/14/2022; Injury details: Patient claimed of falling while exiting the bathtub; ; Additional info: Patient fell getting out of the bathtub. TECHNIQUE: Imaging protocol: Real-time ultrasound of the maternal uterus with image documentation. Exam focused on the clinical indication. COMPARISON: US OB limited [facility] 02/05/2022 10:58 AM FINDINGS: Gestation: A single intrauterine gestation is identified. heart rate: Appropriate cardiac activity is documented. Heart rate is 144 bpm. lie: Fetus is in transverse lie. Placenta: Fundal placenta. No retroplacental fluid collection. No placenta previa. Amniotic fluid index: Amniotic fluid index is 17.4 cm. BIOMETRY: Gestational age (AUA): Biometric measurements correlate to a gestational age of 28 weeks 4 days. /US OB limited [address]03 IMPRESSION: 1. A single live intrauterine gestation is identified. Biometric measurements correlate to a gestational age of 28 weeks 4 days click. Appropriate cardiac activity is documented. 2. No acute abnormality demonstrated.
[2022-02-14 23:14] VITALS: BP 129/66; PULSE 72
[2022-02-15 01:02] VITALS: BP 151/70; PULSE 82
[2022-02-15 01:18] VITALS: BP 136/65; PULSE 77
[2022-02-15 01:23] VITALS: BP 136/65; PULSE 77; RESP 16; TEMP 36.7
== END 2022-02-15 01:23 | disposition home or self-care (01) ==
LOC: OPOB 22:52 → OBGYN 22:52
PROVIDERS: PCP Registered Nurse; Visit Provider Obstetrics & Gynecology
DX: O26.899 Other specified pregnancy related conditions, unspecified trimester (principal); Z3A.00 Weeks of gestation of pregnancy not specified; Z91.81 History of falling
CPT/HCPCS: 76815; 99211

== ENCOUNTER → 2022-03-04 09:16 | Outpatient (BNVA) | payer MEDICAID, SELFPAY | PROVIDERS: PCP Registered Nurse; Visit Provider Obstetrics & Gynecology | DX: Z34.90 Encounter for supervision of normal pregnancy, unspecified, unspecified trimester (principal) | CPT/HCPCS: 81000; 82951; 82952; 85027 ==

== ENCOUNTER 2022-03-13 09:40 | Outpatient (CLI) | payer MEDICAID, SELFPAY ==
[2022-03-13 09:51] VITALS: BMI 42.0
[2022-03-13 09:53] VITALS: BP 137/78; PULSE 90
[2022-03-13 09:54] VITALS: TEMP 36.3
--- NOTE | 2022-03-13 10:03 | US_ITS ---
WS: [id number] BIOPHYSICAL PROFILE AMNIOTIC FLUID HISTORY: DECREASED MOVEMENT COMPARISON: None available. Cardiac activity: 124 bpm. Cervix: closed. Placenta: Anterior, no previa or abruption. Placenta grade: 1 Parameters are as follows: Breathin Movement: 2 Tone: 2 Fluid volume: 2 Amniotic fluid index: 10.7 cm which is between the fifth and 50th percentiles. Largest vertical pocke t of amniotic fluid 3.2 cm. US/[place] OB [place] [address] IMPRESSION: 1. Biophysical profile score: 8/8. 2. Amniotic fluid index: 10.7 cm.
[2022-03-13 10:45] LABS: Actim Prom Negative
[2022-03-13 11:00] VITALS: BP 128/87; PULSE 90; RESP 18; TEMP 36.2
[2022-03-13 11:57] VITALS: BP 128/87; PULSE 90
== END 2022-03-13 10:55 | disposition home or self-care (01) ==
LOC: OPOB 09:47 → OBGYN 09:48
PROVIDERS: PCP Registered Nurse; Visit Provider Obstetrics & Gynecology
DX: O36.8190 Decreased fetal movements, unspecified trimester, not applicable or unspecified (principal); Z3A.00 Weeks of gestation of pregnancy not specified
CPT/HCPCS: 76819; 84112; 99211

== ENCOUNTER 2022-03-28 20:02 | Outpatient (CLI) | payer MEDICAID, SELFPAY ==
[2022-03-28] VITALS (13 sets, daily range): BP systolic 119–128; BP diastolic 56–58; PULSE 67–82; RESP 16; TEMP 36.1; O2SAT 99–100; BMI 41.8
[2022-03-28 20:36] LABS: Nitrazine Paper, PH Inconclusive
[2022-03-28 20:45] LABS: Actim Prom Negative
[2022-03-28 21:12] LABS: Bilirubin Urine Neg (Negative); Blood Urine Neg (Negative); Glucose Urine UA Norm (Normal); Ketones Urine Negative (Negative); Leukocyte Esterase Urine Negative (Negative); Nitrate Urine Negative (Negative); Protein Urine Neg (Negative); Urine Appearance Clear (CLEAR); Urine Color Yellow (Yellow); Urobilinogen Urine Norm (Negative); pH Urine 6 (5-7)
[2022-03-28 21:14] LABS: Add Urine Culture? No; Bacteria Urine 1+ /hpf
== END 2022-03-28 21:39 | disposition home or self-care (01) ==
LOC: OPOB 20:03 → OBGYN 20:04
PROVIDERS: PCP Registered Nurse; Visit Provider Obstetrics & Gynecology
DX: O26.899 Other specified pregnancy related conditions, unspecified trimester (principal); Z3A.00 Weeks of gestation of pregnancy not specified; N89.8 Other specified noninflammatory disorders of vagina
CPT/HCPCS: 59025; 81001; 83986; 84112; 99211

== ENCOUNTER → 2022-04-30 10:30 | Outpatient (BNVA) | payer MEDICAID, SELFPAY | PROVIDERS: PCP Registered Nurse; Visit Provider Obstetrics & Gynecology | DX: Z34.80 Encounter for supervision of other normal pregnancy, unspecified trimester (principal) | CPT/HCPCS: 81000; 87081 ==

== ENCOUNTER → 2022-05-06 09:00 | Outpatient (BNVA) | payer MEDICAID, SELFPAY | PROVIDERS: PCP Registered Nurse; Visit Provider Obstetrics & Gynecology | DX: Z34.80 Encounter for supervision of other normal pregnancy, unspecified trimester (principal) | CPT/HCPCS: 81000 ==

== ENCOUNTER 2022-05-15 13:21 | Inpatient (IN) | payer MEDICAID, SELFPAY ==
[2022-05-15] VITALS (48 sets, daily range): BP systolic 125–172; BP diastolic 58–90; PULSE 64–91; RESP 16; O2SAT 90–100; BMI 42.0
[2022-05-15 15:33] LABS: Basophils % 0.3 %; Eosinophils # 1.4 10^3/uL (0.0-0.8); Eosinophils % 12.2 %; Hematocrit 34.6 % (37.0-47.0); Hemoglobin 10.6 g/dL (11.5-15.3); Lymphocytes # 2.3 10^3/uL (1.5-6.5); Lymphocytes % 20.2 %; Mean Corpuscular HGB Conc 30.6 g/dL (30.0-36.0); Mean Corpuscular Hemoglobin 22.8 pg (28.0-34.0); Mean Corpuscular Volume 74.6 fl (81-99); Monocytes # 0.8 10^3/uL (0.2-0.9); Monocytes % 6.5 %; Neutrophils # 7.03 10^3/uL (1.8-8.0); Neutrophils % 60.5 %; Nucleated Red Blood Cells % 0 %; Platelet Count 363 10^3/cmm (130-400); Red Blood Count 4.64 10^6/uL (4.1-5.3); Red Cell Distribution Width 14.6 % (12.1-15.1); White Blood Count 11.6 10^3/uL (4.5-13.0)
[2022-05-15] MEDS: miSOPROStol 100 mcg tablet 25 MCG VAGINAL ×2 (15:35→20:40)
[2022-05-15] MEDS: dextrose 5%-lactated ringers 1,000 ML 125 ML IV (19:49)
[2022-05-15] MEDS: sulfamethoxazole-trimeth DS 160-800 mg Tablet 1 TAB PO (21:20)
[2022-05-15] MEDS: hyDROXYzine 25 mg Capsule 100 MG PO (21:21)
[2022-05-15] MEDS: sertraline 50 mg Tablet 25 MG PO (21:22)
[2022-05-15] MEDS: gabapentin 300 mg Capsule 600 MG PO (21:22)
[2022-05-15] MEDS: BuSPIRONE 10 mg Tablet 15 MG PO (21:24)
--- NOTE | 2022-05-15 23:26 | ANES.PREANE2 ---
Pre-Anesthetic Assessment Height/Weight: Height 1.7 m Weight 121.563 kg Pulse Resp BP Pulse Ox 88 16 142/69 93 05/15/22 23:11 05/15/22 15:16 05/15/22 23:11 05/15/22 21:13 Airway Submandibular: within normal limits Cervical ROM: within normal limits Mallampati: Class III Dentition: full Pulmonary Asthma CV/HEM None reported None reported Hepatic None reported GI Gastroesophageal Reflux Disease Metabolic Morbid Obesity [facility]/skel Lower Back Pain Spondylolisthesis @ L5 noted discussed increased risk of nerve damage with epidural placement- without significant listhesis. Neuropsych Anxiety and Depression Psoriasis. Anesthetic Plan ASA status: 2 Anesthesia: Eval. for regional block Medications/Allergies Home Medications Medication Instructions Recorded Confirmed Last Taken Type buspirone 15 mg tablet 15 mg PO DAILY #90 tab 03/04/22 05/15/22 05/14/22 22:00 Rx sertraline 25 mg tablet (Zoloft) 25 mg PO DAILY #90 tab 03/04/22 05/06/22 03/28/22 Rx hydroxyzine pamoate 25 mg capsule 100 mg PO .COMPLEX cap 04/02/22 05/06/22 Unknown History certolizumab pegol (Cimzia) 200 mg SUBCUT UNK ea 04/21/22 05/15/22 05/12/22 History gabapentin 100 mg capsule 600 mg PO DAILY cap 04/21/22 05/06/22 Unknown History breast pump #1 ea 05/06/22 05/06/22 Unknown Rx Allergies Allergy/AdvReac Type Severity Reaction Status Date / Time Gold Salts Allergy Rash Verified 05/06/22 09:13 latex Allergy RASH Verified 04/30/22 10:32 Current Medications Generic Name Dose Route Start Last Admin Trade Name Freq PRN Reason Stop Dose Admin Buspirone HCl 15 mg 05/15/22 22:00 05/15/22 21:24 Buspirone 10 Mg Tablet PO 15 mg DAILY JANEY Administration Gabapentin 600 mg 05/15/22 22:00 05/15/22 21:22 Gabapentin 300 Mg Capsule PO 600 mg DAILY JANEY Administration Hydroxyzine Pamoate 100 mg 05/15/22 22:00 05/15/22 21:21 Hydroxyzine 25 Mg Capsule PO 100 mg DAILY JANEY Administration Dextrose/Lactated Ringer's 1,000 mls @ 125 mls/hr 05/15/22 15:30 05/15/22 19:49 Dextrose 5%-Lactated Ringers IV 125 mls/hr .Q8H JANEY Administration Misoprostol 25 mcg 05/15/22 15:28 05/15/22 20:40 Misoprostol 100 Mcg Tablet VAGINAL 25 mcg Q4H PRN Administration cervical ripening Sertraline HCl 25 mg 05/15/22 22:00 05/15/22 21:22 Sertraline 50 Mg Tablet PO 25 mg DAILY JANEY Administration Trimethoprim/Sulfamethoxazole 1 tab 05/15/22 22:00 05/15/22 21:20 Sulfamethoxazole-Trimeth Ds 160-800 Mg Tablet PO 1 tab BID JANEY Administration Protocol PFSH Anesthesia Medical History Anxiety and depression Symptoms on and off. Worse since 2020 with her eczema which is uncontrolled. Was not on medication prior to start of the . Asthma As a child. Uses her inhaler occasionally Eczema (~04/2021) Diagnosed in 2019 --Dr. Duran at [facility]. -Diagnosed with eruptive eczema in 2021 during her and currently on Cimzia. Also has a specialist for eczema in [place]. No pertinent past medical history Denies diabetes, asthma, hypertension, seizures, DVT/PE PCP: TIANNA Lim Surgical History History of hernia surgery Umbilical --- at 6 months old---does not know if mesh was used History of surgery on arm (~2016) Left arm-fracture after trauma History of tonsillectomy and adenoidectomy as a child---at the age of 7 Family History Father Heart disease Hypertension Thyroid disease Mother Hypertension Cervical cancer dx age 40's Thyroid disease thyroid cancer Denies family history of Colon cancer Ovarian cancer Diabetes Hypercholesteremia Breast cancer Uterine cancer Stroke Female Reproductive History Date of last menstrual period: 08/21/21 : 2 Data Anesthesia : 05/15/22 14:15 Short CBC 05/15/22 Range/Units 14:15 WBC 11.6 (4.5-13.0) 10^3/uL Hgb 10.6 L (11.5-15.3) g/dL Hct 34.6 L (37.0-47.0) % MCV 74.6 L (81-99) fl Plt Count 363 (130-400) 10^3/cmm Neut % (Auto) 60.5 % Neut # (Auto) 7.03 (1.8-8.0) 10^3/uL Cardiac Studies: No Data to Display
[2022-05-16] VITALS (54 sets, daily range): BP systolic 100–165; BP diastolic 36–90; PULSE 49–93; RESP 16–18; TEMP 36.4–40.4; O2SAT 71–100
[2022-05-16] MEDS: dextrose 5%-lactated ringers 1,000 ML 125 ML IV ×4 (00:25→21:22)
[2022-05-16] MEDS: miSOPROStol 100 mcg tablet 25 MCG VAGINAL (01:44)
[2022-05-16] MEDS: BuSPIRONE 10 mg Tablet 15 MG PO (08:23)
[2022-05-16] MEDS: sulfamethoxazole-trimeth DS 160-800 mg Tablet 1 TAB PO ×2 (08:25→22:21)
[2022-05-16] MEDS: sertraline 50 mg Tablet 25 MG PO (08:52)
[2022-05-16] MEDS: hyDROXYzine 25 mg Capsule 100 MG PO (08:53)
[2022-05-16] MEDS: oxytocin 30 UNIT/500 ML BAG IV (08:55)
[2022-05-16] MEDS: ondansetron 2 mg/ML SDV 2 mL 4 MG IVP (09:19)
--- NOTE | 2022-05-16 11:07 | PM.OPHPUD ---
Labor & Delivery H&P Update Date of Procedure: May 16, 2022 Date H&P Performed: 05/05/22 H&P update information: I have reviewed H&P completed within last 30 days, I have examined patient prior to procedure and No changes to prior documentation Changes to previous documentation: iup@ [id number]. induction of labor for oligohydramnios. Cervix Admission Diagnosis: Related Problem List Diagnoses (1) Eczema: (2) Obesity affecting , antepartum: (3) Anxiety and depression: (4) macrosomia affecting management of mother, antepartum: (5) Supervision of normal :
--- NOTE | 2022-05-16 11:11 | P.PN_ITS ---
Subjective Subjective: The patient received three doses of cytotec overnight. There were periods of non-reactivity which resolved with position changes and IV fluids. Vitals/I&O/Wt Last Vital Signs Temp 98.2 F 05/16/22 06:30 Pulse 67 05/16/22 11:06 Resp 16 05/15/22 15:16 BP 131/76 05/16/22 07:47 Pulse Ox 100 05/16/22 11:06 05/15/22 05/16/22 05/16/22 22:59 06:59 14:59 Intake Total 609.917 / 814.181 8332.083 / 2000.000 366.466 / 366.466 Output Total 450 / 450 Balance 609.917 / 609.917 940.083 / 1550.000 366.466 / 366.466 Weight last 48 hrs Weight 268 lb Physical Exam Narrative: The patient has been started on pitocin. It had to be stopped due to decelerations. Max dose 1unit per hour. We discussed proceeding with . The baby is oligohydramnios. This is the likely reason for the intolerance to labor. Data : 05/15/22 14:15 Attestations Medical Necessity Statement*: The patient will be here 2 midnights. Coding Level of Care Code Acute Tourist Camp Attendant for Bertha Sena
[2022-05-16] MEDS: citric acid-sodium citrate 30 mL UDC PO (13:10)
[2022-05-16] MEDS: lactated ringers 1,000 ML 999 ML IV (13:11)
[2022-05-16] MEDS: metoclopramide 5 mg/mL SDV 2 mL 10 MG IVP (13:11)
[2022-05-16] MEDS: famotidine 20 mg/2 mL INJ IVP (13:11)
--- NOTE | 2022-05-16 13:45 | SUR.OPER ---
this nurse was attempting to get FHT via doppler, this nurse got a heart rate of 63, maternal heart rate on the anesthesia monitor was 63, surgeon in OR stated that the heart rate that this nurse doppled was FHT and we needed to expedite to deliver fetus. Gel was wiped off and dura prep was then used to prep. Prep was then dried and surgeon placed drape on pt and started with the procedure without a time out due to procedure being expedited
--- NOTE | 2022-05-16 14:30 | P.OP_ITS ---
Operative Report Date of procedure: May 16, 2022 Pre-op diagnosis: intolerance to labor, IUGR Post-op diagnosis: same-delivered Post-op findings: term female , IUGR Procedure done: primary Specimens removed/disposition: placenta to pathology Surgeon: Margarita Chi Anesthesia: Other (spinal) Estimated blood loss (mL): 300 IV fluids (mL): 1,000 Urine output (mL): 200 Complications: After placement of the spinal, the heart tones were in the 60's. The surgery was expedited due to bradycardia Findings: term female in the cephalic presentation. thick meconium stained fluid. Condition: stable Disposition: PACU Brief History: The patient was scheduled for induction for IUGR. She received three doses of cytotec and pitocin was started. once the pitocin was started, the baby began to have recurrent late decelerations. The baby recovered, but a decision was made to perform a primary as baby wasn't tolerating even mild contractions. Procedure: The patient was taken to the operating room where spinal anesthesia was administered and found to be adequate. She was prepped and draped in the normal sterile fashion in the dorsal supine position with a leftward tilt. A Pfannenstiel skin incision was made and carried down to the underlying layer of fascia. The fascia was nicked in the midline and extended laterally with the Huerta scissors. The fascia was then tented up and the rectus muscles dissected off sharply. The rectus muscles were and the peritoneum entered bluntly with the digit. The peritoneal incision was extended superiorly and inferiorly with good visualization of the bladder. The Hitesh O retractor was placed. It was clear of any bowel or omentum. The bladder flap was created sharply with the Metzenbaum scissors. A low transverse uterine incision was made and carried down to the bag of water. The bag of water was ruptured and the uterine incision extended cephalocaudad. The scalp was grasped and brought through the incision. The nose and mouth were bulb suctioned. The shoulders and body delivered atraumatically. The cord was clamped and cut and the baby was handed to the waiting printer small print shop. The placenta was delivered by expression. The uterus was exteriorized and cleared of all clots and debris. The uterine incision was closed with 0 Vicryl in a running fashion. A second imbricating layer of 3-0 Monocryl was used to close the uterus. The bladder flap was closed with 3-0 Monocryl. There was excellent hemostasis. The Hitesh O retractor was removed. The uterus was returned to the abdomen. The peritoneum was closed with 3-0 Monocryl, incorporating the rectus muscle. The fascia was closed with 0 Vicryl in 2 separate sutures overlapping in the midline. The skin was closed with absorbable aranza. Apgars on baby 5 at 1 minute and 7 at 5 minutes. and 8 at 10 minutes. weight 5 pounds 11 ounces. Mother and baby were stable post delivery.
--- NOTE | 2022-05-16 14:57 | ANE.PACU2 ---
Inpatient post-anesthesia follow up: Airway intact: Yes Vital signs: Temperature 102.6 F Pulse Rate 92 Respiratory Rate 16 Blood Pressure 131/76 Pulse Oximetry 100 Oxygen Delivery Me thod Room Air Oxygen Flow Rate Fraction of Inspir ed Oxygen Hydration adequate: Yes Nausea and vomiting: No Pain level: 2 Mental status: Baseline
[2022-05-16] MEDS: ketorolac 30 mg/mL INJ IVP ×2 (17:06→23:06)
[2022-05-16] MEDS: docusate sodium 100 mg Capsule PO (19:27)
[2022-05-16] MEDS: ferrous sulfate EC 325 mg Tablet PO (19:27)
[2022-05-16] MEDS: gabapentin 300 mg Capsule 600 MG PO (21:20)
[2022-05-16] MEDS: HYDROcodone-acetaminophen 5-325 mg Tablet PO (22:29)
[2022-05-17 00:04] VITALS: BP 138/75; PULSE 78; TEMP 36.8
[2022-05-17] MEDS: HYDROcodone-acetaminophen 5-325 mg Tablet PO ×3 (02:18→17:12)
[2022-05-17] MEDS: lanolin oint 7 gm 1 APPLIC TOPICAL (03:41)
[2022-05-17] MEDS: sodium chloride 0.9% 500 ML 999 ML IV (03:41)
[2022-05-17 04:17] VITALS: BP 113/63; PULSE 71; RESP 16; TEMP 36.5
[2022-05-17] MEDS: ketorolac 30 mg/mL INJ IVP (06:17)
[2022-05-17] MEDS: lactated ringers 1,000 ML 999 ML IV (06:18)
[2022-05-17] MEDS: FUROsemide 10 mg/mL SDV 2mL 20 MG IVP (06:25)
[2022-05-17] MEDS: hyDROXYzine 25 mg Capsule 100 MG PO (08:25)
[2022-05-17] MEDS: sulfamethoxazole-trimeth DS 160-800 mg Tablet 1 TAB PO ×2 (08:26→17:58)
[2022-05-17] MEDS: sertraline 50 mg Tablet 25 MG PO (08:27)
[2022-05-17] MEDS: prenatal vitamin Capsule 1 CAP PO (08:27)
[2022-05-17] MEDS: BuSPIRONE 10 mg Tablet 15 MG PO (08:28)
[2022-05-17] MEDS: docusate sodium 100 mg Capsule PO ×2 (08:28→17:12)
[2022-05-17] MEDS: ferrous sulfate EC 325 mg Tablet PO ×2 (08:28→17:12)
[2022-05-17] MEDS: dextrose 5%-lactated ringers 1,000 ML 125 ML IV (08:29)
[2022-05-17 09:48] VITALS: BP 139/69; PULSE 80; RESP 18; TEMP 36.6
[2022-05-17 09:49] LABS: Hematocrit 36.1 % (37.0-47.0); Hemoglobin 10.6 g/dL (11.5-15.3); Mean Corpuscular HGB Conc 29.4 g/dL (30.0-36.0); Mean Corpuscular Hemoglobin 22.8 pg (28.0-34.0); Mean Corpuscular Volume 77.6 fl (81-99); Mean Platelet Volume 10.7 fL (7.4-10.4); Platelet Count 329 10^3/cmm (130-400); Red Blood Count 4.65 10^6/uL (4.1-5.3); White Blood Count 12.4 10^3/uL (4.5-13.0)
--- NOTE | 2022-05-17 11:29 | PM.PN ---
Subjective Subjective: Mrs. Gaona 21-year-old female G1, P1 is status post primary low transverse delivery day 1. Vitals/I&O/Wt Last Vital Signs Temp 97.9 F 05/17/22 09:48 Pulse 80 05/17/22 09:48 Resp 18 05/17/22 09:48 BP 139/69 05/17/22 09:48 Pulse Ox 98 05/16/22 20:24 05/16/22 05/17/22 05/17/22 22:59 06:59 14:59 Intake Total 50 / 9150.447 8356.000 / 2416.466 2400 / 2400 Output Total 1425 / 1625 133 / 1758 1550 / 1550 Balance -1375 / -208.534 867.000 / 658.466 850 / 850 Weight last 48 hrs Weight 121.563 kg Physical Exam Narrative: GA; alert and oriented x 3 HEENT: normal Breasts: engorged Nipples - skin intact Lungs; clear to auscultation Heart: regular rhythm, no murmurs. Abd: Appropriately tender. BS+. Uterine fundus below umbilicus. No Fundal Tenderness. Minimal tenderness, incision clean and dry, no redness, pain or edema. Perineum: normal lochia. Extremities: no edema, no cyanosis, no tenderness. Urinary Catheter Management: Donovan: Cath Placed During This Visit: yes Reason for Continuing Indwelling Catheter: Required Immobilization for Trauma or Surgery or Anesthesia Urinary Catheter Date of Insertion: 05/16/22 Urinary Catheter Time of Insertion: 13:25 Data : 05/17/22 09:35 A&P Assessment and plan (1) Status post delivery: Mrs. Charles 21-year-old female status post primary low transverse delivery day 1. She is afebrile and hemodynamically stable. Minimal urine output noted during the night patient was given diuretic. Has had adequate urine output after that. Ambulating without difficulty. Tolerating diet well. Status: Acute Plan Continue postop observation. Encourage ambulation. Attestations Medical Necessity Statement*: In my professional opinion per admitting diagnosis Coding Level of Care Code Acute Electroformer for Chg Fwd Diagnoses Status post delivery Z98.891
[2022-05-17] MEDS: ibuprofen 800 mg tablet PO ×2 (14:28→21:41)
--- NOTE | 2022-05-17 15:05 | PC.NURSE ---
Donovan catheter removed. Abdominal dressing removed, steri strips intact. Pt then up and ambulated to bathroom. Void 100mL. Linh care performed, gown and pad changed. Pt then ambulated x3 laps around unit and back to room and remained up in room. Pt encouraged to ambulate 3-4 laps every 2-3 hours while awake, verbalized understanding.
[2022-05-17 16:00] VITALS: BP 141/84; PULSE 74; RESP 17; TEMP 36.5
[2022-05-17] MEDS: gabapentin 300 mg Capsule 600 MG PO (21:40)
[2022-05-17 21:55] VITALS: BP 154/83; PULSE 77; O2SAT 97
[2022-05-18] MEDS: HYDROcodone-acetaminophen 5-325 mg Tablet PO ×2 (01:46→08:16)
[2022-05-18 05:10] VITALS: BP 145/68
[2022-05-18] MEDS: docusate sodium 100 mg Capsule PO (08:09)
[2022-05-18] MEDS: ferrous sulfate EC 325 mg Tablet PO (08:09)
[2022-05-18] MEDS: ibuprofen 800 mg tablet PO (08:10)
[2022-05-18] MEDS: hyDROXYzine 25 mg Capsule 100 MG PO (08:10)
[2022-05-18] MEDS: sertraline 50 mg Tablet 25 MG PO (08:10)
[2022-05-18] MEDS: BuSPIRONE 10 mg Tablet 15 MG PO (08:10)
[2022-05-18] MEDS: prenatal vitamin Capsule 1 CAP PO (08:10)
[2022-05-18] MEDS: sulfamethoxazole-trimeth DS 160-800 mg Tablet 1 TAB PO (08:16)
--- NOTE | 2022-05-18 10:00 | PC.NURSE ---
During the wound assessment, this nurse noted that most of the steri-strips had fallen off the incision. This RN removed the ones that were loosely left hanging on the incision and replaced all of them with new steri-strips.
[2022-05-18 10:49] VITALS: BP 123/72; PULSE 70; RESP 16; TEMP 36.9
--- NOTE | 2022-05-18 11:56 | P.DS_ITS ---
Discharge Providers Date of Admission: 05/15/22 13:21 Date of Discharge: May 18, 2022 Attending Provider at Admission: Margarita Chi MD Attending Provider at Discharge: Margarita Chi MD Primary Care Provider: TIANNA Aldrich Diagnoses at Discharge Discharge Diagnosis (1) Status post delivery: Status: Acute Reason for Visit Reason for Visit: induction Hospital Course Hospital Course The patient was admitted for induction at 38 weeks for IUGR. She had intolerance to labor and had a primary . She did well and was ready for discharge on day #2. Physical Exam Narrative: doing well. No concerns today Const: COMMON NORMALS: no acute distress, patient oriented x3, no limitations, healthy appearing, alert and well nourished GENERAL APPEARANCE: cooperative, comfortable, well kempt and well developed ORIENTATION/CONSCIOUSNESS: Yes awake, Yes oriented to person, Yes oriented to place and Yes oriented to time Resp: COMMON NORMALS: normal respiratory effort EFFORT & INSPECTION: Yes able to speak in complete sentences GI: COMMON NORMALS: Soft to palpation and non-tender PALPATION: Yes Soft to palpation Extremity: COMMON NORMALS: no calf tenderness Neuro: COMMON NORMALS: patient oriented x3 SENSORIUM/ORIENTATION: Yes alert, Yes oriented to person, Yes oriented to place and Yes oriented to time Psych: COMMON NORMALS: mental status grossly normal, Normal thought process present, cooperative, normal affect and speech normal APPEARANCE: Yes well kempt SPEECH: Yes normal speech THOUGHT PROCESS: Normal thought process present Urinary Catheter Management: Donovan: Cath Placed During This Visit: yes, but has since been removed by the nurse Reason for Continuing Indwelling Catheter: Decision to DC Catheter Urinary Catheter Date of Insertion: 05/16/22 Urinary Catheter Time of Insertion: 13:25 Date Urinary Catheter Removed: 05/17/22 Time Urinary Catheter Discontinued: 14:30 Discharge Data Studies Completed and Pending Pending at discharge Category Date Time Status Pathology: Surgical [PTH] Stat Pth 05/16/22 14:47 Ordered Laboratory Results WBC 12.4 10^3/uL (4.5-13.0) 05/17/22 09:35 RBC 4.65 10^6/uL (4.1-5.3) 05/17/22 09:35 Hgb 10.6 g/dL (11.5-15.3) L 05/17/22 09:35 Hct 36.1 % (37.0-47.0) L 05/17/22 09:35 MCV 77.6 fl (81-99) L 05/17/22 09:35 MCH 22.8 pg (28.0-34.0) L 05/17/22 09:35 MCHC 29.4 g/dL (30.0-36.0) L 05/17/22 09:35 RDW 15.0 % (12.1-15.1) 05/17/22 09:35 Plt Count 329 10^3/cmm (130-400) 05/17/22 09:35 MPV 10.7 fL (7.4-10.4) H 05/17/22 09:35 Neut % (Auto) 60.5 % 05/15/22 14:15 Lymph % (Auto) 20.2 % 05/15/22 14:15 [place] % (Auto) 6.5 % 05/15/22 14:15 Eos % (Auto) 12.2 % 05/15/22 14:15 Baso % (Auto) 0.3 % 05/15/22 14:15 Neut # (Auto) 7.03 10^3/uL (1.8-8.0) 05/15/22 14:15 Lymph # (Auto) 2.3 10^3/uL (1.5-6.5) 05/15/22 14:15 [place] # (Auto) 0.8 10^3/uL (0.2-0.9) 05/15/22 14:15 Eos # (Auto) 1.4 10^3/uL (0.0-0.8) H 05/15/22 14:15 Baso # (Auto) 0.0 10^3/uL (0.0-0.1) 05/15/22 14:15 Nucleated RBC % (auto) 0 % 05/15/22 14:15 Nucleated RBCs # 0.0 /100WBC 05/15/22 14:15 Vitals Last Vital Signs Temp 98.5 F 05/18/22 10:49 Pulse 70 05/18/22 10:49 Resp 16 05/18/22 10:49 BP 123/72 05/18/22 10:49 Pulse Ox 97 05/17/22 21:55 Discharge Plan Discharge Patient Disposition: Home Condition: Stable Prescriptions: New ibuprofen 800 mg Tablet 800 mg PO TID Qty: 30 0RF hydrocodone-acetaminophen 5-325 mg Tablet 1 tab PO Q4H PRN (Reason: Moderate To Severe Pain) Qty: 30 0RF docusate sodium 100 mg Capsule 100 mg PO BID Qty: 60 0RF Continued Cimzia 400 mg/2 mL (200 mg/mL x 2) syringe kit 200 mg SUBCUT PER PKG DIR 0RF Label Comments: 200mg patient reports taking biweekly Rx Instructions: every other week sertraline [Zoloft] 25 mg tablet 25 mg PO DAILY Qty: 90 1RF buspirone 15 mg tablet 15 mg PO DAILY Qty: 90 1RF gabapentin 100 mg capsule 600 mg PO DAILY 0RF (DME) breast pump Device See Rx Instructions .Route Qty: 1 0RF Rx Instructions: As directed hydroxyzine pamoate 25 mg capsule 100 mg PO DAILY 0RF Bactrim 400-80 mg Tablet 1,200 tab PO DAILY 0RF Discharge Orders: Discharge Order (Routine); Ordered 05/18/22 Ordered By: Margarita Chi Patient Instructions: Depression (DC), Bleeding (DC), Preeclampsia and Eclampsia After Delivery (GEN), OB WHC, OB Discharge Report, OB Food/Drug Interaction Guide, OB Care at Home, Opioid Safety, OB Home Care, OB Proud Parent Packet, Abnormal Bleeding Discharge Attestations Time Spent in Discharge Care*: less than 30 min Quality Metrics Clinical Quality Measures [ No reported AMI, CVA or VTE this stay] Coding Level of Care Code Acute Chg FW DC note Diagnoses Status post delivery Z98.891
[2022-05-18 12:58] VITALS: BP 135/75; PULSE 62; RESP 18; TEMP 36.8
[2022-05-18 12:59] VITALS: BP 135/75; PULSE 62; RESP 18; TEMP 36.8
== END 2022-05-18 13:48 | disposition home or self-care (01) | DRG 788 ==
PROVIDERS: Admitting Provider Obstetrics & Gynecology; PCP Registered Nurse; Visit Provider Obstetrics & Gynecology
PROC: 10D00Z1 Extraction of Products of Conception, Low, Open Approach (ICD-10-PCS; CPT 59514; principal; 2022-05-16 13:20)
DX: O41.03X0 Oligohydramnios, third trimester, not applicable or unspecified (principal); O99.344 Other mental disorders complicating childbirth; O99.214 Obesity complicating childbirth; O36.63X0 Maternal care for excessive fetal growth, third trimester, not applicable or unspecified; O77.0 Labor and delivery complicated by meconium in amniotic fluid; O76 Abnormality in fetal heart rate and rhythm complicating labor and delivery; Z3A.38 38 weeks gestation of pregnancy; Z37.0 Single live birth; O75.89 Other specified complications of labor and delivery; Z91.040 Latex allergy status; F41.8 Other specified anxiety disorders; J45.909 Unspecified asthma, uncomplicated; L25.9 Unspecified contact dermatitis, unspecified cause; Z87.891 Personal history of nicotine dependence
CPT/HCPCS: 36415; 51702; 59025; 59409; 85025; 85027; 88307; 96374; J1885; J1940; J2274; J2370; J2405; J2704; J2765; J3490; J7040

== ENCOUNTER 2022-05-21 00:46 | Emergency (ER) | payer MEDICAID, SELFPAY ==
[2022-05-21 01:01] VITALS: BP 168/77; PULSE 89; RESP 18; TEMP 36.6; O2SAT 100; BMI 40.7
--- NOTE | 2022-05-21 01:08 | ED_ITS ---
HPI - General Adult General: Chief complaint: Abdominal Pain Stated complaint: post op incision bleeding Time Seen by Provider: 05/21/22 00:48 Source: patient Mode of arrival: ambulatory Limitations: no limitations History of Present Illness: 21-year-old female states she had a done on Thursday. States she had noticed some slight bleeding from the right side of her and wanted to make sure it was okay. She states the bleeding since stopped she has had no wound drainage from it no pain no fevers no redness. Has no other complaints at this time. Associated symptoms: Deny chest pain, dyspnea, headache(s), nausea, rash or vomiting Review of Systems Const: Denies: fever(s), chills, body aches or change in appetite Eyes: Denies: blurry vision or eye discomfort ENMT: Denies: throat pain or dental pain Card: Denies: chest pain Resp: Denies: dyspnea GI: Denies: abdominal pain, nausea, vomiting or diarrhea : Denies: dysuria Musc: Denies: neck pain or back pain Skin/Breast: Denies: rash Neuro: Denies: headache(s) Psych: Denies: depression [place]/Lymph: Denies: easy bruising All/Imm: Denies: urticaria PFSH ED PFSH: Medical History Anxiety and depression Symptoms on and off. Worse since 2020 with her eczema which is uncontrolled. Was not on medication prior to start of the . Asthma As a child. Uses her inhaler occasionally Eczema (~04/2021) Diagnosed in 2019 --Dr. Duran at [facility] [place]. -Diagnosed with eruptive eczema in 2021 during her and currently on Cimzia. Also has a specialist for eczema in [place]. No pertinent past medical history Denies diabetes, asthma, hypertension, seizures, DVT/PE PCP: TIANNA Lim Surgical History History of hernia surgery Umbilical --- at 6 months old---does not know if mesh was used History of surgery on arm (~2016) Left arm-fracture after trauma History of tonsillectomy and adenoidectomy as a child---at the age of 7 Family History Father Heart disease Hypertension Thyroid disease Mother Hypertension Cervical cancer dx age 40's Thyroid disease thyroid cancer Denies family history of Colon cancer Ovarian cancer Diabetes Hypercholesteremia Breast cancer Uterine cancer Stroke Female Reproductive History: Date of last menstrual period: 08/21/21 Physical Exam Const: COMMON NORMALS: no acute distress, patient oriented x3 and healthy appearing HENMT: COMMON NORMALS: normocephalic and atraumatic HEAD & SCALP: normocephalic and atraumatic Eye: COMMON NORMALS: Equal, round and reactive pupils present and EOMs intact bilaterally PUPIL: Yes Equal, round and reactive pupils present Neck/C-Spine: COMMON NORMALS: full ROM and supple Chest: COMMONS NORMALS: normal inspection of the chest Resp: COMMON NORMALS: normal respiratory effort Cardio: COMMON NORMALS: regular rate and No murmurs present (Cardio) RATE: regular rate GI: COMMON NORMALS: Normal to inspection, nondistended, normoactive bowel sounds present, Soft to palpation, non-tender and no masses PALPATION: Yes Soft to palpation OTHER: wound to lower abdomen is clean dry and intact no bleeding no seroma no erythema Extremity: COMMON NORMALS: normal to inspection and full ROM Neuro: COMMON NORMALS: patient oriented x3, moves all extremities and no focal motor deficits Psych: COMMON NORMALS: mental status grossly normal, Normal thought process present and cooperative THOUGHT PROCESS: Normal thought process present Skin: COMMON NORMALS: no rashes or lesions noted and no wounds GENERAL SKIN EXAM: no rashes or lesions noted [facility] - General Adult Medical Decision Making Patient presents here with concerns for wound she had some very slight bleeding to the right side of the wound. Her wound is clean dry intact no signs of dehiscence no signs of seroma or infection she has no bleeding at this time she is stable for discharge she has an appoint with her OB on Thursday she is to follow-up then return if worsening she understands agrees to plan. Discharge Plan Discharge Patient Disposition: Home Clinical Impression: Visit for wound check Condition: Stable Prescriptions: No Action Cimzia 400 mg/2 mL (200 mg/mL x 2) syringe kit 200 mg SUBCUT PER PKG DIR 0RF Label Comments: 200mg patient reports taking biweekly Rx Instructions: every other week sertraline [Zoloft] 25 mg tablet 25 mg PO DAILY Qty: 90 1RF buspirone 15 mg tablet 15 mg PO DAILY Qty: 90 1RF gabapentin 100 mg capsule 600 mg PO DAILY 0RF (DME) breast pump Device See Rx Instructions .Route Qty: 1 0RF Rx Instructions: As directed hydroxyzine pamoate 25 mg capsule 100 mg PO DAILY 0RF Bactrim 400-80 mg Tablet 1,200 tab PO DAILY 0RF ibuprofen 800 mg Tablet 800 mg PO TID Qty: 30 0RF hydrocodone-acetaminophen 5-325 mg Tablet 1 tab PO Q4H PRN (Reason: Moderate To Severe Pain) Qty: 30 0RF docusate sodium 100 mg Capsule 100 mg PO BID Qty: 60 0RF Discharge Orders: Discharge ED (Routine); Ordered 05/21/22 Ordered By: Yessi Borja Referrals: Trinh Vargas FNP [Primary Care Provider] - Discharge Diet: Advance as tolerated Discharge Activity: Resume usual activity Patient Instructions: Wound Care (General) Coding Level of Care Code ED Taxicab Driver for Bertha Sena
== END 2022-05-21 01:18 | disposition home or self-care (01) ==
PROVIDERS: Emergency Provider Emergency Medicine; PCP Registered Nurse
DX: Z48.01 Encounter for change or removal of surgical wound dressing (principal)
CPT/HCPCS: 99281

== ENCOUNTER 2022-06-12 23:23 | Emergency (ER) | payer MEDICAID, SELFPAY ==
[2022-06-12 23:45] VITALS: BP 123/78; PULSE 76; RESP 16; TEMP 36.6; O2SAT 100; BMI 36.3
--- NOTE | 2022-06-13 01:10 | W.ED.GENADLT ---
HPI - General Adult General: Chief complaint: General Medical Stated complaint: Right Breast Oozing Yellow instead of Milk Time Seen by Provider: 06/13/22 00:43 History of Present Illness: Patient is a 21-year-old female comes to the ED with right breast pain. Patient stopped breast-feeding approximately a week ago but is still been hand expressing milk. Her right breast started to get painful warm and red today. Endorses having cracked nipple with a yellow discharge as well. She also reports having chills and body aches. Denies any fevers. Patient has still been trying to do hand expression of warm compresses to help with clogged duct. Associated symptoms: Deny chest pain, dyspnea, headache(s), nausea, rash, palpitations or vomiting Review of Systems Const: Reports: chills and body aches; Denies: fever(s) or fatigue Eyes: Denies: change in vision or eye discomfort ENMT: Denies: throat pain, odynophagia, nasal discharge or nasal congestion Card: Denies: chest pain, palpitations, edema, swelling of feet/ankles, dyspnea on exertion or orthopnea Resp: Denies: dyspnea, productive cough or non-productive cough GI: Denies: abdominal pain, nausea, vomiting, diarrhea, constipation or hematochezia : Denies: flank pain, dysuria or hematuria Musc: Denies: neck pain, back pain or extremity swelling Skin/Breast: Reports: breast pain (Right breast redness, tenderness and warmth.) and nipple discharge; Denies: rash or new lesions Neuro: Denies: headache(s), numbness in extremities or weakness in extremities PFS ED PFSH: Medical History Anxiety and depression Symptoms on and off. Worse since 2020 with her eczema which is uncontrolled. Was not on medication prior to start of the . Asthma As a child. Uses her inhaler occasionally Eczema (~04/2021) Diagnosed in 2019 --Dr. Duran at [facility] [place]. -Diagnosed with eruptive eczema in 2021 during her and currently on Cimzia. Also has a specialist for eczema in [place]. No pertinent past medical history Denies diabetes, asthma, hypertension, seizures, DVT/PE PCP: TIANNA Lim Surgical History History of hernia surgery Umbilical --- at 6 months old---does not know if mesh was used History of surgery on arm (~2017) Left arm-fracture after trauma History of tonsillectomy and adenoidectomy as a child---at the age of 7 Family History Father Heart disease Hypertension Thyroid disease Mother Hypertension Cervical cancer dx age 40's Thyroid disease thyroid cancer Denies family history of Colon cancer Ovarian cancer Diabetes Hypercholesteremia Breast cancer Uterine cancer Stroke Female Reproductive History: Date of last menstrual period: 08/21/21 Physical Exam Const: COMMON NORMALS: patient oriented x3 and alert GENERAL APPEARANCE: cooperative and comfortable HENMT: COMMON NORMALS: normocephalic HEAD & SCALP: normocephalic MOUTH: Normal oral and palatal mucosa present THROAT: posterior oropharynx normal and uvula midline Neck/C-Spine: COMMON NORMALS: supple GENERAL: Yes normal visual inspection Chest: BREAST/AXILLA PALPATION: Yes abnormal palpation of the breast right upper outer Breast palpation abnormal details: tenderness and other (Erythema and warmth.) Resp: COMMON NORMALS: normal respiratory effort, No retractions, No use of accessory muscles and clear to auscultation bilaterally AUSCULTATION: clear to auscultation bilaterally Cardio: COMMON NORMALS: regular rate, regular rhythm, S1 normal heart sound present, S2 normal heart sound present, No gallops present (Cardio), No clicks present (Cardio), No murmurs present (Cardio) and Peripheral pulses 2+ throughout RATE: regular rate RHYTHM: regular rhythm HEART SOUNDS: S1 normal heart sound present and S2 normal heart sound present PERIPHERAL PULSES: Peripheral pulses 2+ throughout GI: COMMON NORMALS: Normal to inspection, nondistended, normoactive bowel sounds present, Soft to palpation, non-tender and no masses PALPATION: Yes Soft to palpation : COMMON NORMALS: Yes no CVA tenderness BLADDER/KIDNEY EXAM: Yes no CVA tenderness Back/Pelvis: COMMON NORMALS: no CVA tenderness Extremity: COMMON NORMALS: normal to inspection Neuro: COMMON NORMALS: patient oriented x3 SENSORIUM/ORIENTATION: Yes alert GAIT: Yes Normal gait present Skin: GENERAL SKIN EXAM: dry skin Course Vital Signs: Vital signs: Vital Signs Temperature 97.8 F 06/13/22 01:27 Pulse Rate 76 06/13/22 01:27 Respiratory Rate 16 06/13/22 01:27 Blood Pressure 123/78 06/13/22 01:27 Pulse Oximetry 100 06/13/22 01:27 Oxygen Delivery Me thod 06/12/22 23:45 MDM - General Adult Medical Decision Making Patient is a 21-year-old female comes to the ED with right breast pain. Patient stopped breast-feeding approximately a week ago but is still been hand expressing milk. Her right breast started to get painful warm and red today. Endorses having cracked nipple with a yellow discharge as well. She also reports having chills and body aches. Vital stable and patient is afebrile. Exam of patient shows mastitis of right breast. She was given a dose of an antibiotic here in the ED and discharged home with a prescription for dicloxacillin. She was told to continue with warm compresses and tried to express milk to help with clogged duct. follow-up with her OB at her next scheduled appointment. Return to ED precautions given. Patient understood agree with plan. Discharge Plan Discharge Patient Disposition: Home Clinical Impression: Mastitis Condition: Stable Prescriptions: New dicloxacillin 500 mg capsule 500 mg PO Q6H 10 Days Qty: 40 0RF No Action Cimzia 400 mg/2 mL (200 mg/mL x 2) syringe kit 200 mg SUBCUT PER PKG DIR Label Comments: 200mg patient reports taking biweekly Rx Instructions: every other week sertraline [Zoloft] 25 mg tablet 25 mg PO DAILY Qty: 90 1RF buspirone 15 mg tablet 15 mg PO DAILY Qty: 90 1RF gabapentin 100 mg capsule 600 mg PO DAILY (DME) breast pump Device See Rx Instructions .Route Qty: 1 0RF Rx Instructions: As directed hydroxyzine pamoate 25 mg capsule 100 mg PO DAILY Bactrim 400-80 mg Tablet 1,200 tab PO DAILY ibuprofen 800 mg Tablet 800 mg PO TID Qty: 30 0RF hydrocodone-acetaminophen 5-325 mg Tablet 1 tab PO Q4H PRN (Reason: Moderate To Severe Pain) Qty: 30 0RF docusate sodium 100 mg Capsule 100 mg PO BID Qty: 60 0RF Discharge Orders: Discharge ED (Routine); Ordered 08/05/22 Ordered By: Kem Velarde Referrals: Trinh Vargas FNP [Primary Care Provider] - Discharge Diet: Regular Discharge Activity: Increase activity as tolerated Patient Instructions: Mastitis (ED) Activity Restrictions/Additional Instructions: Follow-up with medical provider as directed at your neck scheduled appointment. Take medications as prescribed. Take [id number] Tylenol for any pain or fevers. Continue doing warm compresses and hand expression of milk to try to help removed clogged duct. Return to the ER or your medical provider if condition worsens. Please read and understand discharge instructions. Thank you for choosing [facility] for your healthcare needs today. Please realize this is an emergency room and that we are providing you with a medical screening exam and this may not be complete and all inclusive of all the testing and or work up that you may need to determine your ailment or severity of your illness. It is very important that you follow up as instructed or that you return to the Emergency Department should you have concerns or if your condition changes or worsens in any way. Coding Level of Care Code ED Gre Instructor for Bertha Fwchey Exam Comprehensive
[2022-06-13 01:27] VITALS: BP 123/78; PULSE 76; RESP 16; TEMP 36.6; O2SAT 100
[2022-06-13] MEDS: cephALEXin 500 mg Capsule PO (01:27)
== END 2022-06-13 01:28 | disposition home or self-care (01) ==
PROVIDERS: Emergency Provider Physician Assistant; PCP Registered Nurse
DX: N61.0 Mastitis without abscess (principal)
CPT/HCPCS: 99283

== ENCOUNTER 2022-07-22 13:34 | Outpatient (CLI) | payer MEDICAID, SELFPAY ==
[2022-07-22 14:39] LABS: Basophils # 0.1 10^3/uL (0.0-0.1); Basophils % 0.6 %; Eosinophils % 11.5 %; Hematocrit 40.9 % (37.0-47.0); Hemoglobin 12.2 g/dL (11.5-15.3); Lymphocytes # 2.5 10^3/uL (1.5-6.5); Lymphocytes % 27.8 %; Mean Corpuscular HGB Conc 29.8 g/dL (30.0-36.0); Mean Corpuscular Volume 77.2 fl (81-99); Mean Platelet Volume 10.7 fL (7.4-10.4); Monocytes # 0.8 10^3/uL (0.2-0.9); Monocytes % 8.9 %; Neutrophils # 4.54 10^3/uL (1.8-8.0); Neutrophils % 51.1 %; Nucleated Red Blood Cells % 0 %; Platelet Count 349 10^3/cmm (130-400); Red Cell Distribution Width 17.1 % (12.1-15.1); White Blood Count 8.9 10^3/uL (4.5-13.0)
[2022-07-22 15:04] LABS: Anion Gap 15.3 (5-19); Blood Urea Nitrogen 11 mg/dL (6-20); Calcium 9.3 mg/dL (8.5-10.5); Carbon Dioxide 25 mmol/L (22-29); Chloride 103 mmol/L (98-107); Glomerular Filtration Rate 91.4 mL/min (90-130); Glucose 77 mg/dL (65-115); Osmolality Calculated 286 mOsm/kg (285-295); Potassium 4.3 mmol/L (3.5-5.1); Sodium 139 mmol/L (136-145)
== END 2022-07-22 13:35 | disposition home or self-care (01) ==
LOC: LAB 13:36
PROVIDERS: PCP Registered Nurse; Visit Provider Registered Nurse
DX: L20.89 Other atopic dermatitis (principal)
CPT/HCPCS: 36415; 80048; 85025

== ENCOUNTER → 2022-07-30 13:09 | Outpatient (BNVA) | payer MEDICAID, SELFPAY | PROVIDERS: PCP Registered Nurse; Visit Provider Obstetrics & Gynecology | DX: Z30.9 Encounter for contraceptive management, unspecified (principal) | CPT/HCPCS: 81025 ==

== ENCOUNTER 2022-08-29 12:56 | Outpatient (CLI) | payer MEDICAID, SELFPAY ==
[2022-08-29 13:47] LABS: Basophils % 0.3 %; Eosinophils # 0.3 10^3/uL (0.0-0.8); Eosinophils % 3.4 %; Hematocrit 40.5 % (37.0-47.0); Hemoglobin 12.8 g/dL (11.5-15.3); Lymphocytes # 2.7 10^3/uL (1.5-6.5); Lymphocytes % 27.6 %; Mean Corpuscular HGB Conc 31.6 g/dL (30.0-36.0); Mean Corpuscular Hemoglobin 24.2 pg (28.0-34.0); Mean Corpuscular Volume 76.4 fl (81-99); Mean Platelet Volume 10.4 fL (7.4-10.4); Monocytes # 0.9 10^3/uL (0.2-0.9); Monocytes % 9.4 %; Neutrophils # 5.69 10^3/uL (1.8-8.0); Nucleated Red Blood Cells % 0 %; Platelet Count 388 10^3/cmm (130-400); Red Cell Distribution Width 15.8 % (12.1-15.1); White Blood Count 9.7 10^3/uL (4.5-13.0)
[2022-08-29 14:14] LABS: Alanine Aminotransferase 23 U/L (0-33); Albumin Level 4.3 g/dL (3.5-5.2); Alkaline Phosphatase 112 U/L (35-105); Blood Urea Nitrogen 11 mg/dL (6-20); Calcium 9.4 mg/dL (8.5-10.5); Carbon Dioxide 21 mmol/L (22-29); Chloride 104 mmol/L (98-107); Glomerular Filtration Rate 91.4 mL/min (90-130); Glucose 74 mg/dL (65-115); Osmolality Calculated 290 mOsm/kg (285-295); Sodium 141 mmol/L (136-145); Total Bilirubin 0.2 mg/dL (0.15-1.2); Total Protein 7.3 g/dL (6.6-8.7)
[2022-08-29 14:15] LABS: Anion Gap 20.5 (5-19); Aspartate Amino Transferase 28 U/L (0-32); Potassium 4.5 mmol/L (3.5-5.1)
== END 2022-08-29 12:57 | disposition home or self-care (01) ==
PROVIDERS: PCP Registered Nurse; Visit Provider Dermatology
DX: L20.89 Other atopic dermatitis (principal)
CPT/HCPCS: 36415; 80053; 85025

== ENCOUNTER 2022-10-16 15:13 | Outpatient (CLI) | payer MEDICAID, SELFPAY ==
[2022-10-16 15:26] LABS: Basophils % 0.3 %; Eosinophils # 0.3 10^3/uL (0.0-0.8); Eosinophils % 3.4 %; Hematocrit 40.6 % (37.0-47.0); Hemoglobin 12.8 g/dL (11.5-15.3); Lymphocytes # 2.5 10^3/uL (0.8-4.8); Lymphocytes % 27.6 %; Mean Corpuscular HGB Conc 31.5 g/dL (30.0-36.0); Mean Corpuscular Hemoglobin 24.7 pg (28.0-34.0); Mean Corpuscular Volume 78.2 fl (81-99); Monocytes # 0.7 10^3/uL (0.2-0.9); Monocytes % 7.6 %; Neutrophils # 5.51 10^3/uL (1.8-7.7); Neutrophils % 60.8 %; Nucleated Red Blood Cells % 0 %; Platelet Count 364 10^3/cmm (130-400); Red Blood Count 5.19 10^6/uL (4.1-5.3); Red Cell Distribution Width 14.9 % (12.1-15.1); White Blood Count 9.1 10^3/uL (4.0-10.0)
[2022-10-16 15:52] LABS: Blood Urea Nitrogen 12 mg/dL (6-20); Calcium 9.7 mg/dL (8.5-10.5); Carbon Dioxide 26 mmol/L (22-29); Chloride 102 mmol/L (98-107); Chol HDL Ratio 6.17 mg/dL (0.0-4.40); Cholesterol 259 mg/dL (0-200); Glomerular Filtration Rate 90.5 mL/min (90-130); Glucose 77 mg/dL (65-115); HDL Cholesterol 42 mg/dL (60-100); LDL Cholesterol Calculated 172 mg/dL (50-129); Osmolality Calculated 285 mOsm/kg (285-295); Sodium 138 mmol/L (136-145); Triglycerides 224 mg/dL (0-150)
== END 2022-10-16 15:14 | disposition home or self-care (01) ==
LOC: LAB 15:13
PROVIDERS: PCP Registered Nurse; Visit Provider Dermatology
DX: L20.89 Other atopic dermatitis (principal)
CPT/HCPCS: 80048; 80061; 85025

== ENCOUNTER 2022-11-01 18:41 | Emergency (ER) | payer MEDICAID, SELFPAY ==
[2022-11-01 18:54] VITALS: BP 133/75; PULSE 92; RESP 18; TEMP 37.1; O2SAT 96; BMI 40.6
--- NOTE | 2022-11-01 19:05 | CTR_ITS ---
PROCEDURE INFORMATION: Exam: CT Head Without Contrast Exam date and time: 11/01/2022 7:52 PM Age: 22 years old Clinical indication: Pain; Fever; Headache not specified; Additional info: Headache fever TECHNIQUE: Imaging protocol: Computed tomography of the head without contrast. Axial, coronal and sagittal reformatted images were created and reviewed. Radiation optimization: All CT scans at this facility use at least one of these dose optimization techniques: automated exposure control; mA and/or kV adjustment per patient size (includes targeted exams where dose is matched to clinical indication); or iterative reconstruction. COMPARISON: No relevant prior studies available. RADIATION DOSE METRICS: Total DLP (mGy-cm): 1125.9 FINDINGS: Brain: No CT evidence of acute intracranial hemorrhage or acute territorial infarction. No significant mass effect or midline shift. Basal cisterns patent. Cerebral ventricles: Normal in size and configuration. Paranasal sinuses: Unremarkable. No fluid levels. Mastoid air cells: Grossly unremarkable. Bones/joints: No acute osseous abnormality. Soft tissues: Grossly unremarkable. CT/CT head wo con* [id number] IMPRESSION: No CT evidence of acute intracranial pathology.
[2022-11-01 19:33] LABS: Basophils % 0.2 %; Eosinophils # 0.1 10^3/uL (0.0-0.8); Eosinophils % 1.1 %; Hematocrit 38.2 % (37.0-47.0); Hemoglobin 12.3 g/dL (11.5-15.3); Lymphocytes # 1.5 10^3/uL (0.8-4.8); Lymphocytes % 18.2 %; Mean Corpuscular HGB Conc 32.2 g/dL (30.0-36.0); Mean Corpuscular Hemoglobin 25.1 pg (28.0-34.0); Mean Platelet Volume 10.1 fL (7.4-10.4); Monocytes # 0.9 10^3/uL (0.2-0.9); Monocytes % 10.9 %; Neutrophils # 5.79 10^3/uL (1.8-7.7); Neutrophils % 69.2 %; Nucleated Red Blood Cells % 0 %; Platelet Count 339 10^3/cmm (130-400); Red Cell Distribution Width 15.1 % (12.1-15.1); White Blood Count 8.4 10^3/uL (4.0-10.0)
[2022-11-01 19:41] LABS: HCG, Serum Qual Negative (Negative)
[2022-11-01] MEDS: ondansetron 2 mg/ML SDV 2 mL 4 MG IVP (19:41)
[2022-11-01] MEDS: ketorolac 30 mg/mL INJ 15 MG IVP (19:41)
[2022-11-01] MEDS: sodium chloride 0.9% 1,000 ML 999 ML IV ×2 (19:42→20:57)
--- NOTE | 2022-11-01 19:43 | ED_ITS ---
HPI - Fever General: Chief Complaint: Fever Stated Complaint: N/N, fever sent by urgant care Time Seen by Provider: 11/01/22 19:03 Source: patient History of Present Illness: 22-year-old female sent from the urgent care regarding 3 days or so of headache, nausea, vomiting, and congestion with fever as high as 102.5 at home. She still complains of most of these things. Her worst complaint is the headache. She has no neck pain. She has no pain with neck movement or bending over. MD elicited complaint: fever Onset (ago): day(s) Relieving factors: nothing Associated symptoms: Reports chills, headache(s), nasal congestion, nausea, rh inorrhea and vomiting; Deny abdominal pain, flank pain, chest pain, confusion, cough, dysuria, short of breath or stiffness Review of Systems Const: Reports: chills ENMT: Reports: nasal congestion Card: Denies: chest pain Resp: Denies: dyspnea, productive cough or non-productive cough GI: Reports: nausea and vomiting; Denies: abdominal pain : Denies: flank pain or dysuria Neuro: Reports: headache(s); Denies: confusion PFSH ED PFSH: Medical History Anxiety and depression Symptoms on and off. Worse since 2020 with her eczema which is uncontrolled. Was not on medication prior to start of the . Asthma As a child. Uses her inhaler occasionally Eczema (~04/2021) Diagnosed in 2019 --Dr. Duran at [facility] [place]. -Diagnosed with eruptive eczema in 2021 during her and currently on Cimzia. Also has a specialist for eczema in [place]. No pertinent past medical history Denies diabetes, asthma, hypertension, seizures, DVT/PE PCP: TIANNA Lim Surgical History History of hernia surgery Umbilical --- at 6 months old---does not know if mesh was used History of surgery on arm (~2016) Left arm-fracture after trauma History of tonsillectomy and adenoidectomy as a child---at the age of 7 Family History Father Heart disease Hypertension Thyroid disease Mother Hypertension Cervical cancer dx age 40's Thyroid disease thyroid cancer Denies family history of Colon cancer Ovarian cancer Diabetes Hypercholesteremia Breast cancer Uterine cancer Stroke Social History Smoking and tobacco status: never smoked Female Reproductive History: Date of last menstrual period: 08/21/21 Physical Exam Const: COMMON NORMALS: no acute distress GENERAL APPEARANCE: cooperative; not ill appearing and not frail appearing HENMT: COMMON NORMALS: normocephalic, atraumatic and Normal external nose pre sent HEAD & SCALP: normocephalic and atraumatic FACE & SINUS: normal facial exam and face symmetric NOSE: Normal external nose present Eye: COMMON NORMALS: Equal, round and reactive pupils present and EOMs intact bilaterally PUPIL: Yes Equal, round and reactive pupils present Neck/C-Spine: GENERAL: Yes trachea midline Chest: CHEST: Yes Symmetrical chest wall rise Resp: COMMON NORMALS: normal respiratory effort, No retractions, No use of accessory muscles and clear to auscultation bilaterally AUSCULTATION: clear to auscultation bilaterally Cardio: COMMON NORMALS: regular rate and regular rhythm RATE: regular rate RHYTHM: regular rhythm GI: COMMON NORMALS: Normal to inspection, nondistended, normoactive bowel sounds present Extremity: COMMON NORMALS: no pedal edema Neuro: BRO COMA SCALE: document GCS findings Larue coma scale eye opening: Spontaneous Larue coma scale verbal response: Orientated Bro coma scale motor response: Obey commands Larue coma scale total score: 15 SENSORY EXAM: Yes extremities (intact) Psych: COMMON NORMALS: speech normal SPEECH: Yes normal speech Skin: COMMON NORMALS: no rashes or lesions noted GENERAL SKIN EXAM: no rashes or lesions noted Course Vital Signs: Vital signs: Vital Signs Temperature 98.8 F 11/01/22 18:54 Pulse Rate 84 11/01/22 19:45 Respiratory Rate 16 11/01/22 19:45 Blood Pressure 135/53 11/01/22 21:00 Pulse Oximetry 97 11/01/22 21:00 Oxygen Delivery Me thod 11/01/22 21:00 MDM - Fever Medical Decision Making Clinically, she appears quite well. No evidence of meningitis at all. Head CT is negative. CBC is normal. BMP is essentially unremarkable. CRP is mildly elevated at 56. Urinalysis is negative. She was swabbed at urgent care for COVID and flu and was negative. She will be allowed home with treatment for nausea and vomiting. She is feeling much improved after fluid here Lab Data 11/01/22 19:22 11/01/22 19:[address] 11/01/22 19:05 IMPRESSION: No CT evidence of acute intracranial pathology. Laboratory Results WBC 8.4 10^3/uL (4.0-10.0) 11/01/22 19: RBC 4.90 10^6/uL (4.1-5.3) 11/01/22 19: Hgb 12.3 g/dL (11.5-15.3) 11/01/22 19: Hct 38.2 % (37.0-47.0) 11/01/22 19: MCV 78.0 fl (81-99) L 11/01/22 19: MCH 25.1 pg (28.0-34.0) L 11/01/22 19: MCHC 32.2 g/dL (30.0-36.0) 11/01/22 19: RDW 15.1 % (12.1-15.1) 11/01/22: Plt Count 339 10^3/cmm (130-400) 11/01/22 19: MPV 10.1 fL (7.4-10.4) 11/01/22 19: Neut % (Auto) 69.2 % 11/01/22 19: Lymph % (Auto) 18.2 % 11/01/22 19: Pope % (Auto) 10.9 % 11/01/22 19: Eos % (Auto) 1.1 % 11/01/22 19: Baso % (Auto) 0.2 % 11/01/22 19: Neut # (Auto) 5.79 10^3/uL (1.8-7.7) 11/01/22 19: Lymph # (Auto) 1.5 10^3/uL (0.8-4.8) 11/01/22 19: Pope # (Auto) 0.9 10^3/uL (0.2-0.9) 11/01/22 19:22 Eos # (Auto) 0.1 10^3/uL (0.0-0.8) 11/01/22 19:22 Baso # (Auto) 0.0 10^3/uL (0.0-0.1) 11/01/22 19:22 Nucleated RBC % (auto) 0 % 11/01/22 19:22 Nucleated RBCs # 0.0 /100WBC 11/01/22 19:22 Sodium 133 mmol/L (136-145) L 11/01/22 19:22 Potassium 3.5 mmol/L (3.5-5.1) 11/01/22 19:22 Chloride 98 mmol/L (98-107) 11/01/22 19:22 Carbon Dioxide 25 mmol/L (22-29) 11/01/22 19:22 Anion Gap 13.5 (5-19) 11/01/22 19:22 BUN 11 mg/dL (6-20) 11/01/22 19:22 Creatinine 0.8 mg/dL (0.5-0.9) 11/01/22 19:22 GFR Calculation 90.5 mL/min (90-130) 11/01/22 19:22 Glucose 90 mg/dL (65-115) 11/01/22 19:22 Calculated Osmolality 275 mOsm/kg (285-295) L 11/01/22 19:22 Lactate 0.9 mmol/L (0.5-2.2) 11/01/22 19:22 Calcium 9.2 mg/dL (8.5-10.5) 11/01/22 19:22 Total Bilirubin 0.8 mg/dL (0.15-1.2) 11/01/22 19:22 AST 23 U/L (0-32) 11/01/22 19:22 ALT 15 U/L (0-33) 11/01/22 19:22 Alkaline Phosphatase 112 U/L (35-105) H 11/01/22 19:22 C-Reactive Protein 56.7 mg/L (0.0-4.9) H 11/01/22 19:22 Total Protein 7.7 g/dL (6.6-8.7) 11/01/22 19:22 Albumin 4.2 g/dL (3.5-5.2) 11/01/22 19:22 Globulin 3.5 g/dL (1.3-4.6) 11/01/22 19:22 HCG, Qual Negative (Negative) 11/01/22 19:22 Urine Color Yellow (Yellow) 11/01/22 20:45 Urine Appearance Clear (CLEAR) 11/01/22 20:45 Urine pH 6 (5-7) 11/01/22 20:45 Ur Specific [place] 1.010 (1.005-1.030) 11/01/22 20:45 Urine Protein Neg (Negative) 11/01/22 20:45 Urine Glucose (UA) Norm (Normal) 11/01/22 20:45 Urine Ketones Negative (Negative) 11/01/22 20:45 Urine Blood Neg (Negative) 11/01/22 20:45 Urine Nitrate Negative (Negative) 11/01/22 20:45 Urine Bilirubin Neg (Negative) 11/01/22 20:45 Urine Urobilinogen Norm mg/dL (Negative) 11/01/22 20:45 Ur Leukocyte Esterase Negative (Negative) 11/01/22 20:45 Discharge Plan Discharge Patient Disposition: Home Clinical Impression: Gastroenteritis Condition: Stable Prescriptions: New ondansetron 4 mg film 4 mg PO DAILY PRN (Reason: nausea and vomiting) Qty: 10 0RF No Action ParaGard T 380A 380 square mm intrauterine device intrauterine Rinvoq 15 mg tablet extended release 24 hr 15 mg PO DAILY Discharge Orders: Discharge ED (Routine); Ordered 11/01/22 Ordered By: Vamshi Perez Patient Instructions: Gastroenteritis (ED) Activity Restrictions/Additional Instructions: Drink plenty of fluids. Only begin solid food after at least 12 hours of no vomiting. Return for vomiting liquids or medications despite treatment. Return for worsening pain despite treatment. If possible, take the prescribed medication every 6 hours while awake for the first 24 hours, then as needed. Coding Level of Care Code ED Still Runner for Michelleg Fwd Exam Comprehensive
[2022-11-01 19:45] VITALS: BP 139/73; PULSE 84; RESP 16; O2SAT 95
[2022-11-01 19:48] LABS: Alanine Aminotransferase 15 U/L (0-33); Albumin Level 4.2 g/dL (3.5-5.2); Alkaline Phosphatase 112 U/L (35-105); Anion Gap 13.5 (5-19); Aspartate Amino Transferase 23 U/L (0-32); Blood Urea Nitrogen 11 mg/dL (6-20); C Reactive Protein 56.7 mg/L (0.0-4.9); Calcium 9.2 mg/dL (8.5-10.5); Carbon Dioxide 25 mmol/L (22-29); Chloride 98 mmol/L (98-107); Creatinine Clr Calc Pharmacy 152.3986; Globulin 3.5 g/dL (1.3-4.6); Glomerular Filtration Rate 90.5 mL/min (90-130); Glucose 90 mg/dL (65-115); Lactate (Lactic Acid level) 0.9 mmol/L (0.5-2.2); Osmolality Calculated 275 mOsm/kg (285-295); Potassium 3.5 mmol/L (3.5-5.1); Sodium 133 mmol/L (136-145); Total Bilirubin 0.8 mg/dL (0.15-1.2); Total Protein 7.7 g/dL (6.6-8.7)
[2022-11-01 21:00] VITALS: BP 135/53; O2SAT 97
[2022-11-01 21:05] LABS: Add Urine Microscopic? NO; Charge for UA Resulting for Rev
[2022-11-01 21:07] LABS: Bilirubin Urine Neg (Negative); Blood Urine Neg (Negative); Glucose Urine UA Norm (Normal); Ketones Urine Negative (Negative); Leukocyte Esterase Urine Negative (Negative); Nitrate Urine Negative (Negative); Protein Urine Neg (Negative); Urine Appearance Clear (CLEAR); Urine Color Yellow (Yellow); Urobilinogen Urine Norm (Negative); pH Urine 6 (5-7)
== END 2022-11-01 21:15 | disposition home or self-care (01) ==
PROVIDERS: Emergency Provider Emergency Medicine
DX: K52.9 Noninfective gastroenteritis and colitis, unspecified (principal); Z20.822 Contact with and (suspected) exposure to COVID-19
CPT/HCPCS: 36415; 70450; 80053; 81003; 83605; 84703; 85025; 86140; 87040; 87400; 87426; 96361; 96374; 96375; 99285; J1885; J2405; J7030

== ENCOUNTER 2022-12-16 11:38 | Outpatient (CLI) | payer MEDICAID, SELFPAY ==
--- NOTE | 2022-12-16 11:45 | USCV_ITS ---
Charley Charles Age: 22 Gender: F : 2000 Exam Date: 12/16/2022 12:28 Ordering Phys: Placido Arias MD ([email or web address]) Technologist: ROSEMARY Exam Location: [facility] [place] Indication: MURMUR AND SHORTNESS OF BREATH BP: 144 / 79 HR: 82 Rhythm: Sinus Technical Quality: Adequate MEASUREMENTS (Male / Female) Normal Values 2D ECHO LVOT Diameter 2.0 cm LV Ejection Fraction MOD 2C 58.9 % LV Ejection Fraction 2C AL 58.3 % LA Diameter 2.8 cm LA Width 4.3 cm LA Height 4.9 cm RA Width 3.3 cm RA Height 4.8 cm Aorta at Sinotubular Diameter 2.2 cm IVC Diameter 1.6 cm M-MODE Aortic Annulus Diameter 2.8 cm LA Ao Ratio MM 0.9 MV E Point Septal Separation 0.4 cm DOPPLER AV Peak Velocity 209.0 cm/s LVOT Peak Velocity 163.0 cm/s AV Area Cont Eq vti 2.3 cm squared AV Area Cont Eq pk 2.5 cm squared MV Peak Velocity 147.0 cm/s MV Area PHT 3.7 cm squared Mitral E to A Ratio 1.4 MV E' Velocity 63.5 cm/s Mitral E to MV E' Ratio 6.1 Mitral E to LV E' Lateral Ratio 6.1 Mitral E to LV E' Septal Ratio 6.2 TR Peak Velocity 169.6 cm/s TR Peak Gradient 11.5 mmHg TR Mean Velocity 166.7 cm/s TR Mean Gradient 11.2 mmHg TR Velocity Time Integral 55.5 cm TV Peak E Velocity 74.0 cm/s Right Atrial Pressure 3.0 mmHg Pulmonary Artery Systolic Pressu 14.5 mmHg PV Peak Velocity 139.0 cm/s RV Acceleration Time 0.2 s RV Ejection Time 0.3 s RV AcT/ET 0.6 FINDINGS Left Ventricle Normal left ventricular size and systolic function, EF 62 %. No regional wall motion abnormalities. Right Ventricle The right ventricle is normal in size and function. Right Atrium The right atrium is normal in size. Left Atrium The left atrium, upper limit of normal size Mitral Valve Trace mitral valve regurgitation. Aortic Valve No gross abnormalities noted Tricuspid Valve Trace tricuspid valve regurgitation. Pulmonic Valve Pulmonic valve not well visualized. Pericardium Normal pericardium without effusion. Aorta Normal ascending aorta dimension. IVC Normal inferior vena cava. CONCLUSIONS Normal left ventricular size and systolic function, EF 62 %. No regional wall motion abnormalities. The left atrium, upper limit of normal size. Trace of mitral and tricuspid regurgitation There is no pericardial effusion. There are no intracardiac masses. No similar previous studies are available for comparison Dr Placido Arias MD [facility] (Electronically Signed) Final Date: 17 December 2022 10:51 S
== END 2022-12-16 11:39 | disposition home or self-care (01) ==
LOC: RAD 11:40
PROVIDERS: PCP Registered Nurse; Visit Provider Internal Medicine Cardiovascular Disease
DX: R01.1 Cardiac murmur, unspecified (principal); R06.09 Other forms of dyspnea
CPT/HCPCS: 93306

== ENCOUNTER 2023-01-03 08:23 | Emergency (ER) | payer MEDICAID, SELFPAY ==
[2023-01-03 08:29] VITALS: BP 145/79; PULSE 86; TEMP 36.6; O2SAT 96; BMI 40.7
--- NOTE | 2023-01-03 08:38 | PC.NURSE ---
pt ambulatory with steady gait, tearful
--- NOTE | 2023-01-03 08:46 | PC.NURSE ---
pt reports middle back pain for a week, gradually worsening. reports today she couldn't get out of bed without crying and had to crawl at first. pt reports urinary frequency and foul smelling urine. denies any recent injuries
[2023-01-03 08:50] LABS: Add Urine Microscopic? NO; Charge for UA Resulting for Rev
--- NOTE | 2023-01-03 08:55 | W.ED.BACK ---
HPI - Back Pain/Injury General: Chief Complaint: Back Pain/Injury Stated Complaint: back pain Time Seen by Provider: 01/03/23 08:35 Source: patient Mode of arrival: ambulatory Limitations: no limitations History of Present Illness: Patient presents to the emergency department today for evaluation treatment of complaints of mid back pain-worse on the left, radiating up and down her back for the last week. Patient states she noticed 1 week ago onset of this back pain. She reports occasionally taking Tylenol and ibuprofen for her pain without noticeable improvement. Patient denies any falls or injuries prior to onset of discomfort. She reports a family history of back issues as well as kidney stones. Patient has not noticed any dysuria or diony blood in her urine but, is currently being treated for bacterial vaginosis due to an increase in vaginal discharge. Patient reports she has 5 more days of antibiotics. She does feel she has had urinary frequency and urinary malodor. She does not describe any issues with cough or abdominal pains. No lower extremity pain. Associated symptoms: Deny dysuria Review of Systems General: Reports: 10 or more systems reviewed and unremarkable except in HPI and below : Reports: urinary frequency and vaginal discharge (Diagnosed and treated for BV this week); Denies: dysuria Musc: Reports: back pain PFSH ED PFSH: Medical History Anxiety and depression Symptoms on and off. Worse since 2020 with her eczema which is uncontrolled. Was not on medication prior to start of the . Asthma As a child. Uses her inhaler occasionally Eczema (~04/2021) Diagnosed in 2019 --Dr. Duran at [facility] [place]. -Diagnosed with eruptive eczema in 2021 during her and currently on Cimzia. Also has a specialist for eczema in [place]. No pertinent past medical history Denies diabetes, asthma, hypertension, seizures, DVT/PE PCP: TIANNA Lim Surgical History History of hernia surgery Umbilical --- at 6 months old---does not know if mesh was used History of surgery on arm (~2016) Left arm-fracture after trauma History of tonsillectomy and adenoidectomy as a child---at the age of 7 Family History Father Heart disease Hypertension Thyroid disease Hyperlipidemia Mother Hypertension Cervical cancer dx age 40's Thyroid disease thyroid cancer Cancer Psychiatric illness Grandfather Dementia Denies family history of Colon cancer Ovarian cancer Diabetes CAD (coronary artery disease) Clotting disorder Hypercholesteremia Chronic kidney disease (CKD) Breast cancer Suicide Anesthesia complication Bleeding disorder Family history of premature coronary artery disease Lung disease Uterine cancer Stroke Social History Smoking and tobacco status: former smoker Alcohol intake: current Physical Exam Const: COMMON NORMALS: no acute distress, patient oriented x3 and alert HENMT: COMMON NORMALS: normocephalic, atraumatic and hearing grossly normal bilaterally HEAD & SCALP: normocephalic and atraumatic Eye: COMMON NORMALS: Equal, round and reactive pupils present, EOMs intact bilaterally and conjunctivae normal CONJUNCTIVA: Yes conjunctivae normal PUPIL: Yes Equal, round and reactive pupils present Neck/C-Spine: COMMON NORMALS: full ROM and no JVD Lymph: LYMPHATIC: no lymphadenopathy noted Resp: COMMON NORMALS: normal respiratory effort, No retractions and No use of accessory muscles Cardio: COMMON NORMALS: no JVD and regular rate RATE: regular rate Back/Pelvis: OTHER: Patient presents emergency department fully weightbearing independently ambulatory. Patient also independently sits up and lays back in the bed. Patient is able to bring her upper extremities behind her back to indicate her location of pain. Pain is generalized across the lower thoracic region. Extremity: COMMON NORMALS: full ROM and no pedal edema Neuro: COMMON NORMALS: patient oriented x3 SENSORIUM/ORIENTATION: Yes alert Psych: COMMON NORMALS: mental status grossly normal, Normal thought process present, cooperative and normal affect THOUGHT PROCESS: Normal thought process present Skin: COMMON NORMALS: no rashes or lesions noted and turgor normal GENERAL SKIN EXAM: no rashes or lesions noted and turgor normal Course Vital Signs: Vital signs: Vital Signs Temperature 97.9 F 01/03/23 08:29 Pulse Rate 86 01/03/23 08:29 Blood Pressure 145/79 01/03/23 08:29 Pulse Oximetry 96 01/03/23 08:29 Oxygen Delivery Me thod 01/03/23 08:29 MDM - Back Pain/Injury Medical Decision Making Patient presented to the emergency department today for approximately 1 week of mid to low thoracic back pain. Patient states she has taken a little bit of medication at home but did not notice any improvement. She states she is unable to lift her child get out of bed however, patient is independently ambulatory, fully weightbearing, and able to sit up and lay down in the bed without assistance here in the ER today. Patient had some urinary complaints and urinalysis was collected. However, no acute concerns found on her urinalysis. Patient has been afebrile without vomiting and acute concerns for pyelonephritis are minimal at this time. Patient was treated for musculoskeletal back pain. At discharge, patient was asking about getting an MRI performed. Explained to her that I am appreciating no signs of neurological deficit or compromise. Patient is not complaining of neck or low back pain with any issues with the upper or lower extremities. Encouraged her to follow-up with her primary care doctor to discuss at the beginning of the week and at that time, may wish to proceed on with more advanced imaging on an outpatient basis should her doctor recommend. Otherwise, patient is being treated with anti-inflammatories and muscle relaxers. Caution with muscle relaxers discussed. Informational handouts about thoracic back pain provided at discharge. Differential Diagnosis Likely lumbar radiculopathy, sciatica, pyelonephritis, thoracic back pain and discitis Labs Laboratory Results Urine Color Light yellow (Yellow) 01/03/23 08:42 Urine Appearance Clear (CLEAR) 01/03/23 08:42 Urine pH 5 (5-7) 01/03/23 08:42 Ur Specific [place] 1.015 (1.005-1.030) 01/03/23 08:42 Urine Protein Neg (Negative) 01/03/23 08:42 Urine Glucose (UA) Norm (Normal) 01/03/23 08:42 Urine Ketones Negative (Negative) 01/03/23 08:42 Urine Blood Neg (Negative) 01/03/23 08:42 Urine Nitrate Negative (Negative) 01/03/23 08:42 Urine Bilirubin Neg (Negative) 01/03/23 08:42 Urine Urobilinogen Norm mg/dL (Negative) 01/03/23 08:42 Ur Leukocyte Esterase Negative (Negative) 01/03/23 08:42 Discharge Plan Discharge Patient Disposition: Home Clinical Impression: Acute thoracic back pain Condition: Stable Prescriptions: New cyclobenzaprine 10 mg tablet 10 mg PO TID Qty: 14 0RF naproxen 500 mg tablet 500 mg PO BID PRN (Reason: pain) Qty: 20 0RF Voltaren Arthritis Pain 1 % gel 4 g topical QID Qty: 100 0RF Rx Instructions: apply to single knee, ankle, foot; for foot includes sole/toes/top of foot No Action ParaGard T 380A 380 square mm intrauterine device intrauterine Rinvoq 15 mg tablet extended release 24 hr 15 mg PO DAILY metoprolol tartrate 25 mg tablet 12.5 mg PO BID Qty: 30 3RF Discharge Orders: Discharge ED (Routine); Ordered 01/03/23 Ordered By: Deepa Bagley Referrals: Milla Redman [Primary Care Provider] - Discharge Diet: Usual diet Discharge Activity: Increase activity as tolerated Patient Instructions: Back Pain (ED), Thoracic Back Strain (ED) Activity Restrictions/Additional Instructions: Urinalysis today showed no acute concerns for any type of urinary or kidney involvement in your pain. Given the location of your pain, I do not think it has to do with the previous findings of issues with your L5 or any issues in your arms. The thoracic vertebrae support your chest and rib region-watch for any new symptoms of cough, etc. I do recommend a follow-up appoint with your primary care doctor for recheck. At that time you may discuss any advanced imaging as recommended by your doctor for further evaluation of potential disc issues or nerve root compression. Use caution while taking your medication. Muscle relaxers can cause sedation and drowsiness. Do not drive while taking this medication. Do not drink any alcohol while taking this medication. Coding Level of Care Code ED Rough And Trueing Machine Operator for Bertha Sena
[2023-01-03 09:21] LABS: Bilirubin Urine Neg (Negative); Blood Urine Neg (Negative); Glucose Urine UA Norm (Normal); Ketones Urine Negative (Negative); Leukocyte Esterase Urine Negative (Negative); Nitrate Urine Negative (Negative); Protein Urine Neg (Negative); Specific Gravity, Urine 1.015 (1.005-1.030); Urine Appearance Clear (CLEAR); Urine Color Light yellow (Yellow); Urobilinogen Urine Norm (Negative); pH Urine 5 (5-7)
[2023-01-03] MEDS: ketorolac 30 mg/mL INJ IM (09:59)
[2023-01-03] MEDS: cyclobenzaprine 10 mg Tablet PO (09:59)
[2023-01-03 10:18] VITALS: BP 137/60; PULSE 72; RESP 16; O2SAT 97
== END 2023-01-03 10:19 | disposition home or self-care (01) ==
PROVIDERS: Emergency Provider Physician Assistant; PCP Registered Nurse
DX: M54.6 Pain in thoracic spine (principal); Z87.891 Personal history of nicotine dependence
CPT/HCPCS: 81003; 96372; 99284; J1885

== ENCOUNTER → 2023-01-07 15:00 | Outpatient (BNVA) | payer MEDICAID, SELFPAY | PROVIDERS: PCP Registered Nurse; Visit Provider Obstetrics & Gynecology | DX: Z01.419 Encounter for gynecological examination (general) (routine) without abnormal findings (principal) | CPT/HCPCS: 88175 ==

== ENCOUNTER 2023-02-02 16:37 | Outpatient (CLI) | payer MEDICAID, SELFPAY ==
[2023-02-02 17:44] LABS: Basophils % 0.2 %; Eosinophils # 0.3 10^3/uL (0.0-0.8); Eosinophils % 3.4 %; Hematocrit 38.7 % (37.0-47.0); Hemoglobin 12.2 g/dL (11.5-15.3); Lymphocytes # 2.6 10^3/uL (0.8-4.8); Lymphocytes % 26.1 %; Mean Corpuscular HGB Conc 31.5 g/dL (30.0-36.0); Mean Corpuscular Hemoglobin 24.6 pg (28.0-34.0); Mean Corpuscular Volume 78.2 fl (81-99); Mean Platelet Volume 10.4 fL (7.4-10.4); Monocytes # 0.8 10^3/uL (0.2-0.9); Monocytes % 7.9 %; Neutrophils # 6.27 10^3/uL (1.8-7.7); Neutrophils % 62.1 %; Nucleated Red Blood Cells % 0 %; Platelet Count 334 10^3/cmm (130-400); Red Blood Count 4.95 10^6/uL (4.1-5.3); White Blood Count 10.1 10^3/uL (4.0-10.0)
[2023-02-02 18:05] LABS: Alanine Aminotransferase 16 U/L (0-33); Albumin Level 4.4 g/dL (3.5-5.2); Alkaline Phosphatase 123 U/L (35-105); Anion Gap 16.2 (5-19); Aspartate Amino Transferase 25 U/L (0-32); Blood Urea Nitrogen 11 mg/dL (6-20); Calcium 9.1 mg/dL (8.5-10.5); Carbon Dioxide 25 mmol/L (22-29); Chloride 101 mmol/L (98-107); Globulin 3.2 g/dL (1.3-4.6); Glomerular Filtration Rate 105.6 mL/min (90-130); Glucose 84 mg/dL (65-115); Osmolality Calculated 285 mOsm/kg (285-295); Potassium 4.2 mmol/L (3.5-5.1); Sodium 138 mmol/L (136-145); Total Bilirubin 0.2 mg/dL (0.15-1.2); Total Protein 7.6 g/dL (6.6-8.7)
== END 2023-02-02 16:38 | disposition home or self-care (01) ==
PROVIDERS: PCP Registered Nurse; Visit Provider Dermatology
DX: L20.89 Other atopic dermatitis (principal)
CPT/HCPCS: 36415; 80053; 85025

== ENCOUNTER 2023-07-28 12:25 | Outpatient (CLI) | payer MEDICAID, SELFPAY ==
[2023-07-28 12:38] VITALS: BMI 44.6
--- NOTE | 2023-07-28 12:42 | ECG_ITS ---
[facility] Test Date: 2023-07-28 Pat Name: Charley Charles Department: Room: Gender: Female Health Unit Clerk: Bong Wyatt : 2000 Requested By: Placido Arias Order Number: [id number] Juaquin MD: Placido Arias M.D. Interpretive Statements NAME OF STUDY: TREADMILL STRESS TEST INDICATION: Chest Pain, PROCEDURE: At the baseline, the patient's blood pressure was 125/85 with a heart rate of 88. The baseline electrocardiogram showed normal sinus rhythm with some diffused nonspecific T wave changes. The patient exercised for 6 minutes and 54 seconds on a standard Rikki protocol. Patient attained a maximum heart rate of 175 beats per minute(87% of the maximum predicted heart rate) with a blood pressure at the peak exercise of 161/93 mm Hg. The EKG at the peak exercise revealed nonspecific ST-T changes and occasional PVCs on the monitor. Patient did not have any chest pain or any significant cardiac arrhythmias with the exercise During the recovery phase, there were no new changes. The EKG reverted back to the baseline Blood pressure at the end of the recovery phase was 150/87 mm Hg with a heart rate of 100 per minute. CONCLUSION: 1. Nonspecific EKG response to treadmill exercise 2. No exercise-induced chest pain .Had exercise-induced occasional PVCs 3. Minimally impaired exercise tolerance, attained a maximum of 10.2METs 4. Ismpson treadmill score was -10 Electronically Signed On 07-31-2023 19:55:18 CDT by Placido Arias M.D. [email or web address]
[2023-07-28 13:13] VITALS: BP 150/87; PULSE 99
== END 2023-07-28 12:26 | disposition home or self-care (01) ==
PROVIDERS: PCP Registered Nurse; Visit Provider Internal Medicine Cardiovascular Disease
DX: R07.9 Chest pain, unspecified (principal)
CPT/HCPCS: 93017

== ENCOUNTER → 2023-11-26 10:38 | Outpatient (BNVA) | payer MEDICAID, SELFPAY | PROVIDERS: PCP Registered Nurse; Visit Provider Nurse Practitioner Women's Health | DX: R10.2 Pelvic and perineal pain (principal) | CPT/HCPCS: 76830 ==